=== PATIENT | male | born 1975 | race Caucasian/White ===

== ENCOUNTER 2021-10-04 13:31 | Outpatient (RCR) | payer OTHER, SELFPAY ==
[2021-10-04 14:41] VITALS: BP 127/85; PULSE 84; RESP 20; TEMP 36.6; O2SAT 97
[2021-10-04] MEDS: ACETAMINOPHEN 325 MG TABLET 650 MG PO (14:43)
[2021-10-04] MEDS: FAMOTIDINE 20 MG TABLET PO (14:43)
[2021-10-04] MEDS: diphenhydrAMINE HCl CAP 25 MG CAPSULE PO (14:43)
--- NOTE | 2021-10-04 15:22 | PC.NURSE ---
Patient not vaccinated for COVID at this time.
[2021-10-04 16:22] VITALS: BP 115/73; PULSE 59; RESP 18; TEMP 36.8; O2SAT 95
== END 2021-10-05 08:19 ==
LOC: AMCINF 13:31
PROVIDERS: Visit Provider Internal Medicine Hematology & Oncology
DX: Z23 Encounter for immunization (principal); U07.1 COVID-19
CPT/HCPCS: A9270; M0245; Q0245

== ENCOUNTER 2025-05-08 08:35 | Emergency (ER) | payer OTHER, SELFPAY ==
--- NOTE | 2025-05-08 08:36 | ED_ITS ---
HPI - Skin/Abscess/Foreign Bdy General Chief complaint: Skin/Abscess/Foreign Body Stated complaint: tick bites Time Seen by Provider: 05/08/25 09:02 Source: patient, RN notes reviewed and old records reviewed Mode of arrival: ambulatory Limitations: no limitations History of Present Illness HPI narrative: 49-year-old male presents to [facility] with concerns for insect bites. States that he went , them off night. Has the less than 0.5 cm bumps 1 to the left leg in 2 to the right lower leg. Reports them as being very itchy. Pants used topicals antibacterial, hydrocortisone Related Data Home Medications ?Medication ?Instructions ?Recorded ?Confirmed ?Last Taken ?Type No Home Medications 05/08/25 05/08/25 Unknown History Allergies Allergy/AdvReac Type Severity Reaction Status Date / Time No Known Allergies Allergy Verified 05/08/25 08:44 Review of Systems Review of Systems: All systems reviewed & are unremarkable except as noted in HPI and below Constitutional: Constitutional: Reports no additional constitutional complaints ENT: Reports system reviewed and no additional complaints, except as documented Musculoskeletal: Musculoskeletal: Reports no additional musculoskeletal complaints Integumentary/Breasts: Skin/Breast: Reports as per HPI PMFSH Social History Social History Smoking status: Never smoker Alcohol intake: current Spiritual care concerns: No Comments At the time of my signature, I reviewed and agree with the nursing past medical, surgical, social, and family history. There is no relevant family history p ertinent to the patient complaint. Exam Const: General: cooperative, healthy appearing, comfortable, no acute distress, well developed, alert and well nourished Nutritional Appearance: well nourished Orientation/consciousness: patient oriented x3 Limitations: no limitations HENMT: Head: normal to inspection Eyes: General: appearance normal, both eyes and all related structures Alignment and Position: alignment normal Neck: Neck: normal visual inspection, full ROM, no lymphadenopathy and no meningeal signs Chest: Chest palpation & inspection: normal inspection of the chest Resp: Effort & Inspection: normal respiratory effort and able to speak in complete sentences Cardio: Rate: regular rate Skin: General skin exam: normal color and no rashes or lesions noted Other: 3 insect bites less than 0.5 cm 1 to the left lower leg, 2 to the right lower legs. No significant erythema, all 3 are blanchable. No fluctuance Neuro: General: patient oriented x3, gait normal, moves all extremities and no meningeal signs Cognition (Neuro): normal cognition Speech: normal speech Gait exam (Neuro): Normal gait present Extrem: General: normal to inspection, full ROM, capillary refill normal and normal gait Psych: Appearance: grossly normal and well kempt Mental Status: mental status grossly normal Speech and movement: Normal speech and movement present and Clear speech present Affect: normal affect Attitude: cooperative Course Course Level of Care: Express Care Visit Vital Signs Vital signs: Vital Signs Temperature 97.5 F L 05/08/25 08:44 Pulse Rate 65 05/08/25 08:44 Respiratory Rate 16 05/08/25 08:44 Blood Pressure 146/78 H 05/08/25 08:44 Pulse Oximetry 98 05/08/25 08:44 Oxygen Delivery Room Air 05/08/25 08:44 Temperature 97.5 F L 05/08/25 08:44 Pulse Rate 65 05/08/25 08:44 Respiratory Rate 16 05/08/25 08:44 Blood Pressure 146/78 H 05/08/25 08:44 Pulse Oximetry 98 05/08/25 08:44 Oxygen Delivery Room Air 05/08/25 08:44 Reviewed MDM - Skin/Abscess/Foreign Bdy MDM Narrative Medical decision making narrative: Patient sitting in exam. Patient is nontoxic, vitals stable. Patient with 3 day history of insect bite Offered triamcinolone cream, states he did not need a prescription Discussed patient patient pulling tics, discussed prophylactic dose doxycycline which he declined at this time. Patient appropriate for outpatient treatment with close follow up Discharge instructions reviewed with patient, as well as provided in writing per nursing staff. The instructions also include specific and strict return/GO TO THE ER as well as f/u information. All questions have been answered, and the patient deny any further questions wit h discharge and discharge plan. Some parts of this dictation were generated by voice recognition software and may contain typographical and/or grammatical inaccuracies. Differential Diagnosis Differential diagnosis: Likely abscess of skin or subcutaneous tissue, urticaria, cellulitis, eczema, insect bites, impetigo and contact dermatitis Critical Care Time Critical Care Time Critical Care Time: No Discharge Plan Discharge Clinical Impression: Insect bites Patient Disposition: Home Condition: Stable Instructions: Insect Bite or Sting (ED), Tick Bite (ED) Additional Instructions: Wash area with warm soapy water, pat dry. The most important part of your care is follow up with Primary care provider. Take Benadryl 25 mg every 8 hours for itching Take Zyrtec every day Take Pepcid 20mg daily for 7 days Apply hydrocortisone cream Avoid hot showers, Take cool showers. Hot showers will make rashes worse Apply cool compresses every 2-3 hours for 15 minutes Follow-up with primary care provider Go to the ER for new or worsening symptoms such as shortness of breath. Patient Language: Ukrainian Prescriptions: No Action No Home Medications Follow-up/Referrals: UNKNOWN,DOCTOR [Non-Staff] - Time of Disposition: 09:14
[2025-05-08 08:44] VITALS: BP 146/78; PULSE 65; RESP 16; TEMP 36.4; O2SAT 98
== END 2025-05-08 09:18 | disposition home or self-care (01) ==
PROVIDERS: Emergency Provider Nurse Practitioner; PCP Student in an Organized Health Care Education/Training Program
DX: S80.862A Insect bite (nonvenomous), left lower leg, initial encounter (principal); W57.XXXA Bitten or stung by nonvenomous insect and other nonvenomous arthropods, initial encounter
CPT/HCPCS: 99211; G0463

== ENCOUNTER 2025-05-20 15:33 | Emergency (ER) | payer OTHER, SELFPAY ==
[2025-05-20] VITALS (14 sets, daily range): BP systolic 144–187; BP diastolic 89–104; PULSE 54–76; RESP 11–21; TEMP 36.7; O2SAT 97–100
--- NOTE | ~2025-05-20 | XR_ITS ---
XR chest 1V portable Ordering provider: Barry Gutierrez MD History: 49 years Male with . cp . Comparison: None. FINDINGS: MEDIASTINUM: The cardiac silhouette is not enlarged. LUNGS: No infiltrates, effusions or pneumothorax. OTHER: No free air under the diaphragm. Possible sliding hiatus hernia. IMPRESSION: No acute cardiopulmonary pathology. Reviewed, dictated and finalized at location A.
--- OUTSIDE RECORDS SUMMARY | 2025-05-20 15:34 | XMS_ITS | Encounter Summary ---
Author Organization [facility] Address [address] [place] [address] Care Team Providers Care Weed Thinner Name Role Phone Rufino Vela MD Primary Care Provider Unav ailable Lashell Reyes MD Primary Care Provider [phone] Rufino Vela MD Primary Care Provider Unav ailable Lashell Reyes MD Unavailable [phone] Lashell Reyes MD Primary Care Provider [phone] Rufino Vela MD Primary Care Provider Unav ailable Encounter Details Date Type Department Care Team (Late st Contact Info) Description 04/01/2019 Lab Requisition [facility] Care DermPath Lab [address] [place] [address] Michael Montiel MD [address] [place] [id number] Social History Tobacco Use Types Packs/Day Years Used Date Smoking Tobacco: Never Smokeless Tobacco: Never Comments:BARS Alcohol Use Standard Drinks/Week Comments Yes 0 (1 standard drink = 0.6 oz pur e alcohol) 6-8 A WEEK Sex and Gender Information Value Date Recorded Sex Assigned at Not on file 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 Author Exercise 5X per week (30 min per time) Exercise No Lashell Reyes MD Note: The [employer] recommends all adults get a minimum of 150 minutes of moderate physical activity a week. This can be completed as 30 minutes of brisk walking on most days of the week. Even 10 minutes of exercise a day can provide benefit and will add up over the week. If able, try to take the stairs instead of the elevator or park farther away in the parking lot. Start slow and try to increase your amount of activity over several weeks. Exercise will help to improve your cholesterol readings and blood pressure and to be overall healthier. documented as of this encounter Procedures Procedure Name Priority Date/Time Associated Diagnosis Comments DERMATOPATH TECHNICAL REPORT Routine 03/31/2019 12:00 AM CDT documented in this encounter Results * DERMATOPATH TECHNICAL REPORT (03/31/2019 12:00 AM CDT) Case Report Dermatopathology Report Case: [id number] Authorizing Provider: Michael Montiel MD Collected: 03/31/2019 12:00 AM Pathologist: Louisa Coto MD Received: 04/01/2019 01:30 PM Specimen: Skin, right anglican 4:07 PM CDT DERMATOPATHOLOGY LABORATORY Clinical History Hemangioma. R/O other 9 4:07 PM CDT DERMATOPATHOLOGY LABORATORY Gross Description Specimen A: Received is one formalin filled container labeled with the patient's name and designated right anglican. The specimen consists of a shave biopsy measuring 5x4x1 mm. Jar 0. [facility] Dermatopathology Laboratory performed the technical component only. 9 4:07 PM CDT DERMATOPATHOLOGY LABORATORY Embedded Images 4:07 PM CDT DERMATOPATHOLOGY LABORATORY DISCLAIMER An external and internal positive and negative controls are appropriate for the histochemical, immunohistochemical and immunofluorescence stain(s) in this case (if any), except where stated explicitly. The performance characteristics of the stain(s) cited in this report were developed and its performance characteristic determined by the Dermatopathology Laboratory at [facility], directed by Dr. Jaxon Coto. These tests need not be, and therefore are not, approved by the [place] Food and Drug Administration. The tests are used for clinical purposes. 9 4:07 PM CDT DERMATOPATHOLOGY LABORATORY at 1607 CDT Pathology/Cytolog y TISSUE SPECIMEN FROM SKIN / Unknown 03/31/2019 04/01/2019 1:30 PM CDT Michael Montiel MD LAB - PATHOLOGY/CYTOLOGY ORDERA BLES Final Result DERMATOPATHOLOGY LABORATORY [facility] - Department of Dermatology [address] [place] [address], [address] [place] [address], [facility] [phone] documented in this encounter Visit Diagnoses Not on filedocumented in this encounter Care Teams Weed Thinner Relationship Specialty Start Date End Date Rufino Vela MD PCP - General 04/01/19 04/28/19 Lashell Reyes MD PCP - General Family Medicine 04/29/19 01/24/21 Rufino Vela MD NEED INFORMATION UPDATED PCP - General 01/25/21 1 Lashell Reyes MD [address] [place] [phone] PCP - Attributed-[employer] 02/15/21 3 Lashell Reyes MD PCP - General Family Medicine 10/04/21 02/26/22 Rufino Vela MD NEED INFORMATION UPDATED PCP - General 02/27/22 documented as of this encounter
--- OUTSIDE RECORDS SUMMARY | 2025-05-20 15:34 | XMS_ITS | Encounter Summary ---
Author Organization [facility] Address [address] [place] [address] Care Team Providers Care Stone And Plate Preparer Apprentice Name Role Phone Rufino Vela MD Primary Care Provider Unav ailable Lashell Reyes MD Primary Care Provider [phone] Rufino Vela MD Primary Care Provider Unav ailable Lashell Reyes MD Primary Care Provider [phone] Rufino Vela MD Primary Care Provider Unav ailable Lashell Reyes MD Unavailable [phone] Lashell Reyes MD Primary Care Provider [phone] Rufino Vela MD Primary Care Provider Unav ailable Encounter Details Date Type Department Care Team (Late st Contact Info) Description 03/17/2015 Therapy Visit [facility] Rufino Vela MD NEED INFORMATION UPDATED Social History Tobacco Use Types Packs/Day Years Used Date Smoking Tobacco: Never Smokeless Tobacco: Never Comments:BARS Alcohol Use Standard Drinks/Week Comments Yes 0 (1 standard drink = 0.6 oz pur e alcohol) 6-8 A WEEK Sex and Gender Information Value Date Recorded Sex Assigned at Not on file 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 Gender Identity Not on file Sexual Orientation Not on file 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 on file Not on file documented as of this encounter Plan of Treatment Not on file documented as of this encounter Visit Diagnoses Not on filedocumented in this encounter Care Teams Stone And Plate Preparer Apprentice Relationship Specialty Start Date End Date Rufino Vela MD PCP - General 01/02/09 02/15/19 Lashell Reyes MD PCP - General Family Medicine 02/16/19 03/31/19 Rufino Vela MD PCP - General 04/01/19 04/28/19 Lashell Reyes MD PCP - General Family Medicine 04/29/19 01/24/21 Rufino Vela MD NEED INFORMATION UPDATED PCP - General 01/25/21 1 Lashell Reyes MD [address] [place] [phone] PCP - Attributed-[employer] 02/15/21 3 Lashell Reyes MD PCP - General Family Medicine 10/04/21 02/26/22 Rufino Vela MD NEED INFORMATION UPDATED PCP - General 02/27/22 documented as of this encounter
--- NOTE | 2025-05-20 15:35 | ECG_ITS ---
Test Date: 2025-05-20 15:38:48 Measurements Intervals [place] Rate: 68 P: 53 IN: 175 QRS: 7 QRSD: 111 T: 37 QT: 420 QTc: 449 Interpretive Statements SINUS RHYTHM WITH OCCASIONAL VENTRICULAR PREMATURE COMPLEXES INCOMPLETE RIGHT BUNDLE BRANCH BLOCK [90+ ms QRS DURATION, TERMINAL R IN V1/V2, 40+ ms S IN I/aVL/V4/V5/V6] MODERATE ST DEPRESSION [0.05+ mV ST DEPRESSION] No previous ECG available for comparison Electronically Signed On 05-21-2025 13:55:06 CDT by Azael Acosta M.D.
--- OUTSIDE RECORDS SUMMARY | 2025-05-20 15:35 | XMS_ITS | Clinical Summary ---
Author Organization [facility] [employer] Address [address] [facility] [place] [address] Care Team Providers Care Nursing Education Specialist Name Role Phone Rufino Vela MD Primary Care Provider Unav ailable Source Comments [facility],non-owned Affiliates and Associated Physician Practices is amultiple site organization consisting of ambulatory clinics and hospital sitesin [place], [place], [place] and [place]. This disclosure is being madepursuant to the Care Everywhere program and may not contain all information available regarding this patient. Last updated 18.[facility] [employer] Allergies Active Allergy Reactions Criticality Noted Date Comments Clarithromycin Diarrhea,Nausea 01/02/2009 Medications * Be aware that medications may not be up to date on this document. Alwaysverify current medications with the patient. Fexofenadine HCl (ASHLI ALLERGY PO) Take 1 tablet by mouth once daily Active clonazePAM (KLONOPIN) 1 MG tablet Take 1 (one) tablet by mouth nightly as needed FOR ANXIETY. Please use sparingly 30 tablet Active Active Problems Problem Noted Date Diagnosed Date BMI 29.0-29.9,adult 10/04/2021 Anxiety 01/12/2014 Cervical radiculopathy 07/15/2011 Neck pain 07/15/2011 Overview (07/15/2011): Cervical spine xray: negative. Left shoulder pain 07/15/2011 Overview (07/15/2011): Left shoulder xray: negative. Back pain 02/04/2011 Overview (04/10/2015): MRI lumbar spine. Negative. Needs followup in 1 -2 weeks as this is Workman's Compensation injury. Allergic rhinitis 01/02/2009 Overview (08/17/2015): Resolved Problems Problem Noted Date Diagnosed Date Resolved Date Left lumbar radiculopathy 02/04/2011 Screening for condition 01/02/200912/2018 Overview (08/17/2015): Adult Abstraction Problem List Screening NONE Immunizations Immunization Administration Dates Next Due TDAP (7yrs+) 03/10/2018,03/15/2008 Family History Medical History Relation Name Comments Cancer - Skin, Melanoma Father Colon polyps Father Diabetes - Type 2 Father as side-ef fect of chemo Other - Cardiac Father hole in hear t Cancer - Ovarian Maternal Aunt 1 Leukemia Maternal Aunt 2 Cancer - Prostate Maternal Grandfather Cancer - Breast Maternal Grandmother Cancer - Skin, Melanoma Mother Cancer - Prostate Paternal Grandfather Other Paternal Grandfather PPM Cancer - Skin, Melanoma Paternal Grandmother Cancer Sister Thyroid Cancer - Breast Sister Relation Name Status Comments Father Maternal Aunt 1 Maternal Aunt 2 Maternal Grandfather Maternal Grandmother Mother Paternal Grandfather Paternal Grandmother Sister Social History Tobacco Use Types Packs/Day Years Used Date Smoking Tobacco: Never Smokeless Tobacco: Never Tobacco Cessation:Counseling Given: Yes Comments:BARS Alcohol Use Standard Drinks/Week Comments Yes 0 (1 standard drink = 0.6 oz pur e alcohol) 6-8 A WEEK Sex and Gender Information Value Date Recorded Sex Assigned at Not on file 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 Gender Identity Not on file Sexual Orientation Not on file 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 on file Not on file Last Filed Vital Signs Vital Sign Reading Time Taken Comments Blood Pressure 136/86 12/28/2020 10:50 AM CLINICAL RESEARCH TECHNICIAN Pulse 82 12/28/2020 10:50 AM CLINICAL RESEARCH TECHNICIAN Temperature 36 C (96.8 F) 12/28/2020 10:50 AM CLINICAL RESEARCH TECHNICIAN Respiratory Rate 20 02/16/2019 8:56 AM CDT Oxygen Saturation 98% 12/28/2020 10:50 AM CLINICAL RESEARCH TECHNICIAN Inhaled Oxygen Concentration - - Weight 102.1 kg (225 lb) 12/28/2020 10:50 AM CLINICAL RESEARCH TECHNICIAN Height 185.4 cm (6' 1) 12/28/2020 10:50 AM CLINICAL RESEARCH TECHNICIAN Body Mass Index 29.69 12/28/2020 10:50 AM CLINICAL RESEARCH TECHNICIAN Plan of Treatment Health Maintenance Due Date Last Done Comments COLOGUARD (AGES 45-75) - COL ON CA SCREENING 1977 COLON MONITORING 1977 COLONOSCOPY - COLON CA SCREENING 1977 CT COLONOGRAPHY - COLON CA SCREENING 1977 Colorectal Cancer Screening 1977 FIT - COLON CA SCREENING 1977 FLEX SIG - COLON CA SCREENING 1977 HIV SCREENING 1992 HEPATITIS B VACCINE (1 of 3 - 19+ 3-dose series) 1996 SCREENING FOR DIABETES 12/28/2023 , 02/26/2017 COVID-19 VACCINE (1 - 2023-2 5 season) 2024 DEPRESSION SCREENING 11/17/2024 INFLUENZA VACCINE (Season Ended) 2025 LIPID TESTING 12/28/2025 12/28/2020, 02/26/2017 ZOSTER VACCINE (1 of 2) 2027 DTAP/TDAP/TD VACCINES (3 - T d or Tdap) 03/10/2028 03/10/2018, 03/15/2008 HEPATITIS C SCREENING Completed 12/28/2020 HIB VACCINE Aged Out No longer eligi ble based on patient's age to complete this topic HPV VACCINE Aged Out No longer eligi ble based on patient's age to complete this topic MENINGOCOCCAL (Group B) VACCINE SHARED DECISION-MAKING Aged Out No longer eligible based on patient's age to complete this topic MENINGOCOCCAL GROUPS A/C/Y/W VACCINE Aged Out No longer eligible b ased on patient's age to complete this topic PNEUMOCOCCAL VACCINE Aged Out No long er eligible based on patient's age to complete this topic Goals Goal Patient Goal Type Associated Problems Recent Progress Patient-Stated? Author Exercise 5X per week (30 min per time) Exercise No Lashell Reyes MD Note: The [employer] recommends all adults [...] blood pressure and to be overall healthier. Procedures Procedure Name Priority Date/Time Associated Diagnosis Comments COMPREHENSIVE METABOLIC PANEL Routine 12/28/2020 12:03 PM CLINICAL RESEARCH TECHNICIAN Annual physical exam Screening for diabetes mellitus LIPID PROFILE REFLEX LDL DIRECT Routine 12/28/2020 12:03 PM CLINICAL RESEARCH TECHNICIAN Annual physical exam Screening, lipid HEPATITIS C AB W RFLX VERIFICATION Routine 12/28/2020 12:03 PM CLINICAL RESEARCH TECHNICIAN Annual physical exam Encounter for hepatitis C screening test for low risk patient from Last 3 Months or Most Recently Relevant to Health Maintenance Results * (ABNORMAL) LIPID PROFILE REFLEX LDL DIRECT (12/28/2020 12:03 PM CLINICAL RESEARCH TECHNICIAN) Cholesterol 242(H) <200 mg/dL [facility] INSURANCE BILL Triglycerides 152(H) <150 mg/dL [facility] INSURANCE BILL HDL Cholesterol 61 >40 mg/dL [facility] INSURANCE BILL VLDL Calculated 30 <=30 mg/dL [facility] INSURANCE BILL LDL Calculated 151(H) <130 mg/dL [facility] INSURANCE BILL Cholesterol/HDL Ratio 4.0 <4.5 [facility] INSURANCE BILL LDL/HDL Ratio 2.5 <5.0 [facility] INSURANCE BILL Comment:FASTING Blood BLOOD SPECIMEN / Unknown 12/28/2020 12:03 PM CLINICAL RESEARCH TECHNICIAN 12/28/2020 Narrative Resulting Agency Comment Lab Testing performed at: [facility] [address] [place] [phone] [place] Lashell Reyes MD LAB - CHEMISTRY ORDERABLES Fin al Result [facility] INSURANCE BILL [address] [place] [address] * HEPATITIS C AB W RFLX VERIFICATION (12/28/2020 12:03 PM CLINICAL RESEARCH TECHNICIAN) [facility] Hepatitis C Antibody <0.1 0.0 - 0.9 s/co ratio [facility] INSURANCE BILL Comment:FASTING Blood BLOOD SPECIMEN / Unknown 12/28/2020 12:03 PM CLINICAL RESEARCH TECHNICIAN 12/28/2020 Narrative Resulting Agency Comment [facility] [address] [facility] [phone] Lashell Reyes MD LAB - CHEMISTRY ORDERABLES Fin al Result [facility] INSURANCE BILL [address] [place] [address] * COMPREHENSIVE METABOLIC PANEL (12/28/2020 12:03 PM CLINICAL RESEARCH TECHNICIAN) [facility] Glucose 88 70 - 105 mg/dL [facility] INSURANCE BILL BUN 11 8.9 - 20.6 mg/dL [facility] INSURANCE BILL Creatinine 0.95 0.72 - 1.25 mg/dL [facility] INSURANCE BILL eGFR by MDRD >60 >60 mL/min/1.7 3m2 [facility] INSURANCE BILL eGFR by MDRD >60 >60 mL/min/1.7 3m2 [facility] INSURANCE BILL Sodium 142 136 - 145 mmol/L [facility] INSURANCE BILL Potassium 4.4 3.5 - 5.1 mmol/L [facility] INSURANCE BILL Chloride 106 98 - 107 mmol/L [facility] INSURANCE BILL CO2 25 23 - 31 mmol/L [facility] INSURANCE BILL Calcium 9.4 8.4 - 10.4 mg/dL [facility] INSURANCE BILL Protein Total 7.6 6.4 - 8.3 gm/dL [facility] INSURANCE BILL Albumin 4.8 3.5 - 5.2 gm/dL [facility] INSURANCE BILL Bilirubin Total 0.6 0.2 - 1.2 mg/dL [facility] INSURANCE BILL Comment:Attention clinician: Reference Range change. Alkaline Phosphatase 53 40 - 150 U/L [facility] INSURANCE BILL Comment:Attention clinician: Reference Range change. AST 20 5 - 34 U/L [facility] INSURANCE BILL ALT 32 0 - 61 U/L [facility] INSURANCE BILL Comment:FASTING Blood BLOOD SPECIMEN / Unknown 12/28/2020 12:03 PM CLINICAL RESEARCH TECHNICIAN 12/28/2020 Narrative Resulting Agency Comment Lab Testing performed at: [facility] [address] [place] [id number] Lashell Reyes MD LAB - CHEMISTRY ORDERABLES Fin al Result [facility] INSURANCE BILL [address] [place] [address] from Last 3 Months or Most Recently Relevant to Health Maintenance Insurance [employer] Care Teams Nursing Education Specialist Relationship Specialty Start Date End Date Rufino Vela MD NEED INFORMATION UPDATED PCP - General 02/27/22
--- OUTSIDE RECORDS SUMMARY | 2025-05-20 15:35 | XMS_ITS | Encounter Summary ---
Author Organization [facility] Address 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 Gender Identity Not on file Sexual Orientation Not on file documented as of this encounter Plan of Treatment Not on file documented as of this encounter Procedures Procedure Name Priority Date/Time Associated Diagnosis Comments PATHOLOGY Routine 03/18/2008 5:00 PM CDT documented in this encounter Results * PATHOLOGY (03/18/2008 5:00 PM CDT) FINAL REPORT [facility] [address], [place] [address] Patient: MARCELINA YANCEY : 1975 Procedure Date: 03/18/2008 Accession Date: 03/19/2008 Case No: [id number] Ordering Dr: KUSUM MONTEMAYOR Case types AW, BW, FW, NW and SH are performed by [facility], [place], [place] SURGICAL PATHOLOGY & NON-GYNECOLOGIC CYTOPATHOLOGY REPORT DIAGNOSIS SKIN, SCROTUM, EXCISION: - MELANOCYTIC NEVUS, COMPOUND TYPE. - REACTIVE AND REPARATIVE CHANGES (SEE DESCRIPTION). Specimen Description: Lesion scrotum. Operative Procedure: Not stated. Patient Information/History/Di agnosis: Has had for 1.5 years. Gross: Received in a container labeled Marcelina Yancey, lesion scrotum is an unoriented ellipse of hair-bearing skin measuring 1.7 x 1.1 x 0.3 cm. Present on the skin surface is a circumscribed flat lobato lesion measuring 1.2 x 1.2 cm, which abuts the margin. The margin is marked with ink. The specimen is serially sectioned and submitted entirely in A1. GL/TMZ 03.19.2008 09:41 am Microscopic: Received are slides labeled [id number], Marcelina Yancey. Sections of scrotum identify nests of nevus cells distributed along the dermal/epidermal junction. Substantial upward migration is not identified. A dermal component present and there is vertical maturation. In one of the sections, there is superficial dermal fibrosis consistent with a scar, and raising the consideration of prior biopsy or trauma. In this area, nevus cells assume a more lentiginous distribution. This finding may relate to prior biopsy or to previous trauma. The process is basically symmetric, with only slight lateral extension of the junctional component. The junctional component very focally extends to the inked, peripheral margin. An immunohistochemical stain for HMB45 demonstrates reactivity with the junctional component; activity is markedly diminished in the dermal component. This is compound melanocytic nevus with very mild architectural disorder and very mild cytologic atypia. Note on use of immunocytochemistry reagents: This test was developed and its performance characteristic determined by [facility], Department of Laboratory Medicine. It has not been cleared or approved by the U.S. Food and Drug Administration. The FDA has determined that such clearance or approval is not necessary. The test is used for clinical purpose. It should not be regarded as investigational or for research. This laboratory is certified to perform high complexity clinical testing. PJC/TMZ 03.21.2008 01:01 pm Staging Form: No. ELECTRONIC SIGNATURE FOR ANNY AGUILAR M.D.- 03/23/08 02:04 pm INTERFACE SYSTEM 03/18/2008 5:00 PM CDT us Kusum Montemayor MD PATHOLOGY/CYTOLOGY ORDERABLE S Final Result INTERFACE SYSTEM Refer to clinic/hospital department documented in this encounter Visit Diagnoses Not on filedocumented in this encounter Care Teams Paint Stockman Relationship Specialty Start Date End Date Rufino Vela MD PCP - General 11/02/03 documented as of this encounter
--- OUTSIDE RECORDS SUMMARY | 2025-05-20 15:35 | XMS_ITS | Encounter Summary ---
Author Organization [facility] Address [address] [place] [address] Care Team Providers Care Pattern Room Attendant Name Role Phone Rufino Vela MD Primary Care Provider [phone] Encounter Details Date Type Department Care Team (Late st Contact Info) Description 08/21/2001 Outpatient Historical [facility] Internal Medicine Medical [place] A [address] [facility] [address] [address] Darren Gee MD [address] [place] [address] Social History Tobacco Use Types Packs/Day Years Used Date Smoking Tobacco: Never Assessed Sex and Gender Information Value Date Recorded Sex Assigned at Not on file 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
--- OUTSIDE RECORDS SUMMARY | 2025-05-20 15:35 | XMS_ITS | Encounter Summary ---
Author Organization [employer] Address 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
--- OUTSIDE RECORDS SUMMARY | 2025-05-20 15:35 | XMS_ITS | Encounter Summary ---
Author Organization [facility] Address [address] [place] [address] Care Team Providers Care Addiction Treatment Counselor Name Role Phone Lashell Reyes MD Unavailable [phone] Rufino Vela MD Primary Care Provider Unav ailable Encounter Details Date Type Department Care Team (Late st Contact Info) Description 03/18/2022 Lab Requisition [facility] [address] [facility], [place] [id number] Michael Montiel MD [address] [place] [address] Social History Tobacco Use Types Packs/Day Years Used Date Smoking Tobacco: Never Smokeless Tobacco: Never Comments:BARS Alcohol Use Standard Drinks/Week Comments Yes 0 (1 standard drink = 0.6 oz pur e alcohol) 6-8 A WEEK Sex and Gender Information Value Date Recorded Sex Assigned at Not on file 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 Male 4:27 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 Gender Identity Not on file Sexual Orientation [...] Exercise No Lashell Reyes MD Note: The [employer] recommends all adults [...] Procedure Name Priority Date/Time Associated Diagnosis Comments DERMATOPATHOLOGY Routine 03/15/2022 12:0 0 AM CDT documented in this encounter Results * DERMATOPATHOLOGY (03/15/2022 12:00 AM CDT) Case Report Dermatopathology Report Case: [id number] Authorizing Provider: Michael Montiel MD Collected: 03/15/2022 12:00 AM Ordering Location: [facility] Lab Received: 03/18/2022 11:34 AM Pathologist: Louisa Coto MD Specimen: Skin, mid back 2 12:20 PM CDT DERMATOPATHOLOGY LABORATORY Final Diagnosis Specimen A. SKIN, mid back: DERMAL SCAR RESIDUAL MELANOCYTIC PROLIFERATION NOT IDENTIFIED (L90.5) 2 12:20 PM CDT DERMATOPATHOLOGY LABORATORY at 1220 CDT Clinical History Junctional Melanocytic Proliferation. Please Check Margins. 12:20 PM CDT DERMATOPATHOLOGY LABORATORY Gross Description Specimen A: Received is one formalin filled container labeled with the patient's name and designated mid back.The specimen consists of an ellipse measuring [id number] and is oriented with the suture/notch at the 12 o'clock position labeled on the requisition as (notch at 12 o'clock). The 12 to 6 o'clock margin is inked green. The 6 o'clock to 12 o'clock margin is inked black. The 12 o'clock tip is submitted in cassette 1. The 6 o'clock tip is submitted in cassette 2. The remainder of the ellipse is serially sectioned and submitted in cassettes 3 -4. Jar 0. 2 12:20 PM CDT DERMATOPATHOLOGY LABORATORY Microscopic Description Specimen A. SKIN, mid back: There are fibroblasts and collagen bundles oriented parallel to the skin surface. There are elongated blood vessels, some of which are oriented perpendicular to the skin surface. No residual melanocytic proliferation is identified. 2 12:20 PM CDT DERMATOPATHOLOGY LABORATORY Disclaimer An external and internal positive and negative controls are appropriate for the histochemical, immunohistochemical and immunofluorescence stain(s) in this case (if any), except where stated explicitly. The performance characteristics of the stain(s) cited in this report were developed and its performance characteristic determined by the Dermatopathology Laboratory at [facility], directed by Dr. Jaxon Coto. These tests need not be, and therefore are not, approved by the [place] Food and Drug Administration. The tests are used for clinical purposes. Billing Codes Specimen Charges Stain Charges 10043 1 2 12:20 PM CDT DERMATOPATHOLOGY LABORATORY Embedded Images 2 12:20 PM CDT DERMATOPATHOLOGY LABORATORY Pathology/Cytolog y TISSUE SPECIMEN FROM SKIN / Unknown 03/15/2022 03/18/2022 11:34 AM CDT Michael Montiel MD LAB - PATHOLOGY/CYTOLOGY ORDERA BLES Final Result DERMATOPATHOLOGY LABORATORY [facility] Department of Dermatology [facility] Medicine [address] [place] [address], [address] [phone] documented in this encounter Visit Diagnoses Not on filedocumented in this encounter Care Teams Addiction Treatment Counselor Relationship Specialty Start Date End Date Lashell Reyes MD [address] [address] PCP - Attributed-[employer] 02/15/21 3 Rufino Vela MD NEED INFORMATION UPDATED PCP - General 02/27/22 documented as of this encounter
--- OUTSIDE RECORDS SUMMARY | 2025-05-20 15:35 | XMS_ITS | Clinical Summary ---
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
--- OUTSIDE RECORDS SUMMARY | 2025-05-20 15:35 | XMS_ITS | Referral Summary ---
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 Gender Identity Not on file Sexual Orientation Not on file Last Filed Vital Signs Vital Sign Reading Time Taken Comments Blood Pressure 150/88 09/08/2022 9:47 PM CDT Pulse 88 09/08/2022 9:47 PM CDT Temperature 36.5 C (97.7 F) 09/08/2022 9:47 PM CDT Respiratory Rate 16 09/08/2022 9:47 PM CDT Oxygen Saturation 100% 09/08/2022 9:47 PM CDT Inhaled Oxygen Concentration - - Weight 95.3 kg (210 lb) 09/08/2022 7:40 PM CDT Height 185.4 cm (6' 1) 07/13/2014 2:18 PM CDT Body Mass Index 27.71 07/13/2014 2:18 PM CDT Plan of Treatment Not on file Insurance [facility] Care Teams Nonprofit Manager Relationship Specialty [place] [address] [place] [address] PCP - General 07/13/14
--- OUTSIDE RECORDS SUMMARY | 2025-05-20 15:35 | XMS_ITS | Encounter Summary ---
Author Organization [facility] Address [address] [facility] [place] [address] Care Team Providers Care Cyber Forensics Analyst Name Role Phone Lashell Reyes MD Unavailable [phone] Rufino Vela MD Primary Care Provider Unav ailable Encounter Details Date Type Department Care Team (Late st Contact Info) Description 02/27/2022 Lab Requisition [facility] [address] [facility], [place] [address] Michael Montiel MD [address] [place] [address] Social History Tobacco Use Types Packs/Day Years Used Date Smoking Tobacco: Never Smokeless Tobacco: Never Comments:BARS Alcohol Use Standard Drinks/Week Comments Yes 0 (1 standard drink = 0.6 oz pur e alcohol) 6-8 A WEEK Sex and Gender Information Value Date Recorded Sex Assigned at Not on file Legal 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 Gender Identity Not on file Sexual Orientation [...] Exercise No Lashell Reyes MD Note: The [employer] recommends all adults [...] Priority Date/Time Associated Diagnosis Comments DERMATOPATHOLOGY Routine 02/27/2022 12:0 0 AM CDT documented in this encounter Results * DERMATOPATHOLOGY (02/27/2022 12:00 AM CDT) Case Report Dermatopathology Report Case: [id number] Authorizing Provider: Michael Montiel MD Collected: 02/27/2022 12:00 AM Ordering Location: [facility] Derm[facility] Lab Received: 02/27/2022 02:18 PM Pathologist: Louisa Coto MD Specimen: Skin, mid back 2 5:25 PM CDT DERMATOPATHOLOGY LABORATORY Final Diagnosis Specimen A. SKIN, mid back: JUNCTIONAL MELANOCYTIC PROLIFERATION, INFLAMED; PRESENT AT MARGIN (D48.5) (see microscopic description and comment) 2 5:25 PM CDT DERMATOPATHOLOGY LABORATORY at 1725 CDT Clinical History Nevus R/O atypia. 2 5:25 PM CDT DERMATOPATHOLOGY LABORATORY Gross Description Specimen A: Received is one formalin filled container labeled with the patient's name and designated mid back. The specimen consists of a shave biopsy measuring [id number]. Jar 0. 2 5:25 PM CDT DERMATOPATHOLOGY LABORATORY Microscopic Description Specimen A. SKIN, mid back: Sections show a junctional melanocytic proliferation. There is a lentiginous proliferation of melanocytes between irregular nests. Scattered melanocytes show evidence of upward migration within the epidermis. The melanocytes are highlighted by MART-1/Melan-A. There is a lymphohistiocytic infiltrate within the dermis. This lesion is present at the margin of the specimen. COMMENT: Because this lesion is present at the margin of the specimen, symmetry and circumscription can not be evaluated. Therefore, a complete but conservative re-excision is recommended to evaluate this lesion in its entirety. 2 5:25 PM CDT DERMATOPATHOLOGY LABORATORY Disclaimer An external and internal positive and negative controls are appropriate for the histochemical, immunohistochemical and immunofluorescence stain(s) in this case (if any), except where stated explicitly. The performance characteristics of the stain(s) cited in this report were developed and its performance characteristic determined by the Dermatopathology Laboratory at [facility], directed by Dr. Jaxon Coto. These tests need not be, and therefore are not, approved by the [place] Food and Drug Administration. The tests are used for clinical purposes. Billing Codes Specimen Charges Stain Charges 58924 1 08620 1 2 5:25 PM CDT DERMATOPATHOLOGY LABORATORY Embedded Images 2 5:25 PM CDT DERMATOPATHOLOGY LABORATORY Pathology/Cytolog y TISSUE SPECIMEN FROM SKIN / Unknown 02/27/2022 02/27/2022 2:18 PM CDT Michael Montiel MD LAB - PATHOLOGY/CYTOLOGY ORDERA BLES Final Result DERMATOPATHOLOGY LABORATORY [facility] Department of Dermatology [facility] Medicine [address] [place] [address], [address] [phone] documented in this encounter Visit Diagnoses Not on filedocumented in this encounter Care Teams Cyber Forensics Analyst Relationship Specialty Start Date End Date Lashell Reyes MD [facility] [facility] [address] [place] [address] PCP - Attributed-[employer] 02/15/21 3 Rufino Vela MD NEED INFORMATION UPDATED PCP - General 02/27/22 documented as of this encounter
--- OUTSIDE RECORDS SUMMARY | 2025-05-20 15:35 | XMS_ITS | Encounter Summary ---
Author Organization [facility] Address 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
--- OUTSIDE RECORDS SUMMARY | 2025-05-20 15:35 | XMS_ITS | Encounter Summary ---
Author Organization [facility] Address [address] [place] [address] Care Team Providers Care Assistant Program Manager Name Role Phone Rufino Vela MD Primary Care Provider [phone] Encounter Details Date Type Department Care Team (Late st Contact Info) Description 12/23/2000 Outpatient Historical [facility] Internal Medicine Medical [place] [address] [facility] [address] [address] Darren Gee MD [address] [place] [address] Social History Tobacco Use Types Packs/Day Years Used Date Smoking Tobacco: Never Assessed Sex and Gender Information Value Date Recorded Sex Assigned at Not on file Legal Sex Male 4:[address] DESIGNER Gender Identity Not on file Sexual Orientation Not on file documented as of this encounter Plan of Treatment Not on file documented as of this encounter Visit Diagnoses Not on filedocumented in this encounter Care Teams Assistant Program Manager Relationship Specialty Start Date End Date Rufino Vela MD PCP - General 11/02/03 documented as of this encounter
--- OUTSIDE RECORDS SUMMARY | 2025-05-20 15:35 | XMS_ITS | Encounter Summary ---
Author Organization [facility] Address [address] [facility] [place] [address] Care Team Providers Care Jacquard Fixer Name Role Phone Rufino Vela MD Primary Care Provider Unav ailable Lashell Reyes MD Primary Care Provider [phone] Rufino Vela MD Primary Care Provider Unav ailable Lashell Reyes MD Primary Care Provider [phone] Rufino Vela MD Primary Care Provider Unav ailable Lashell Reyes MD Unavailable [phone] Lashell Reyes MD Primary Care Provider [phone] Rufino Vela MD Primary Care Provider Unav ailable Encounter Details Date Type Department Care Team (Late st Contact Info) Description 12/08/2018 Lab Requisition [facility] Care DermPath Lab [address] [facility] [place] [address] Michael Montiel MD [address] [place] [address] Social History Tobacco Use Types Packs/Day Years Used Date Smoking Tobacco: Never Smokeless Tobacco: Never Comments:BARS Alcohol Use Standard Drinks/Week Comments Yes 0 (1 standard drink = 0.6 oz pur e alcohol) 6-8 A WEEK Sex and Gender Information Value Date Recorded Sex Assigned at Not on file Legal Sex Male 4:27 AM PRESS PULLER Gender Identity Not on file Sexual Orientation Not on file 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 on file Not on file documented as of this encounter Plan of Treatment Not on file documented as of this encounter Procedures Procedure Name Priority Date/Time Associated Diagnosis Comments DERMATOPATHOLOGY Routine 12/07/2018 12:0 0 AM PRESS PULLER documented in this encounter Results * DERMATOPATHOLOGY (12/07/2018 12:00 AM PRESS PULLER) Case Report Dermatopathology Report Case: [id number] Authorizing Provider: Michael Montiel MD Collected: 12/07/2018 12:00 AM Pathologist: Tory Quintana MD Received: 12/08/2018 12:58 PM Specimen: Skin, left buttocks 11:43 AM [facility] DERMATOPATHOLOGY LABORATORY Final Diagnosis Specimen A. SKIN, left buttocks: COMPOUND MELANOCYTIC NEVUS (D22.5) 11:43 AM [facility] DERMATOPATHOLOGY LABORATORY at [address] PR[address] PULLER Clinical History Nevus R/O atypia. 11:43 AM [facility] DERMATOPATHOLOGY LABORATORY Gross Description Specimen A: Received is one formalin filled container labeled with the patient's name and designated left buttocks. The specimen consists of a shave biopsy measuring [id number]. Jar 0. 11:43 AM [facility] DERMATOPATHOLOGY LABORATORY Microscopic Description Specimen A. SKIN, left buttocks: There are nests of melanocytes at the dermal-epidermal junction and within the dermis. 11:43 AM [facility] DERMATOPATHOLOGY LABORATORY Disclaimer An external and internal positive and negative controls are appropriate for the histochemical, immunohistochemical and immunofluorescence stain(s) in this case (if any), except where stated explicitly. The performance characteristics of the stain(s) cited in this report were developed and its performance characteristic determined by the Dermatopathology Laboratory at [facility], directed by Dr. Jaxon Coto. These tests need not be, and therefore are not, approved by the [place] Food and Drug Administration. The tests are used for clinical purposes. Billing Codes Specimen Charges Stain Charges 43841 1 01/23/201 9 11:43 AM PRESS PULLER DERMATOPATHOLOGY LABORATORY Embedded Images 9 11:43 AM PRESS PULLER DERMATOPATHOLOGY LABORATORY Pathology/Cytolog y TISSUE SPECIMEN FROM SKIN / Unknown 12/07/2018 12/08/2018 12:58 PM PRESS PULLER Michael Montiel MD LAB - PATHOLOGY/CYTOLOGY ORDERA BLES Final Result DERMATOPATHOLOGY LABORATORY [facility] - Department of Dermatology [address] [place] [address], 5th Floor Lab [address] [phone] documented in this encounter Visit Diagnoses Not on filedocumented in this encounter Care Teams Jacquard Fixer Relationship Specialty Start Date End Date Rufino Vela MD PCP - General 01/02/09 02/15/19 Lashell Reyes MD PCP - General Family Medicine 02/16/19 03/31/19 Rufino Vela MD PCP - General 04/01/19 04/28/19 Lashell Reyes MD PCP - General Family Medicine 04/29/19 01/24/21 Rufino Vela MD NEED INFORMATION UPDATED PCP - General 01/25/21 1 Lashell Reyes MD [address] [address] PCP - Attributed-[employer] 02/15/21 3 Lashell Reyes MD PCP - General Family Medicine 10/04/21 02/26/22 Rufino Vela MD NEED INFORMATION UPDATED PCP - General 02/27/22 documented as of this encounter
--- OUTSIDE RECORDS SUMMARY | 2025-05-20 15:35 | XMS_ITS | Clinical Summary ---
Author Organization 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 Gender Identity Not on file Sexual Orientation Not on file Obstetrics History Last Filed Vital Signs Vital Sign Reading [...] 07/13/2014 2:18 PM CDT Plan of Treatment Health Maintenance Due Date Last Done Comments Colon Cancer Screening-Colonoscopy 1977 Depression Screening 1977 Hepatitis C Screening 1977 Hepatitis B Screening 1995 Regular Well Visit/Exam 18-64 1995 Influenza Vaccine (Season Ended) 2025 DTaP/Tdap/Td Vaccine (3 - Td or Tdap) 03/10/2028 03/10/2018, 03/15/2008 Pneumococcal vaccine <65 Aged Out No longer eligible based on patient's age to complete this topic Insurance [facility] Care Teams Coordinator Cardiopulmonary Services Relationship Specialty [place] [address] [place] [address] PCP - General 07/13/14
--- OUTSIDE RECORDS SUMMARY | 2025-05-20 15:35 | XMS_ITS | Clinical Summary ---
Author Organization [facility] Address [facility] [place] [address] Care Team Providers Care Gauge Inspector Name Role Phone Yanira Gill MD Primary Care Provider + Allergies Active Allergy Reactions Criticality Noted Date Comments Clarithromycin Diarrhea,Nausea Only 01/02/2009 Medications No known medications Active Problems Problem Noted Date Diagnosed Date Anxiety 01/12/2014 Overview (10/07/2024): Improved over the years. Mostly occurs at the dentist office. Allergic rhinitis 01/02/2009 Encounters Date Type Department Care Team Description 05/08/2025 Scan Big Frame INFO SRVCS Scanned, [facility] 03/22/2025 9:30 AM CDT Office Visit [facility] Family Medicine - [address] [place] [id number] Yanira Gill MD Testicular Pain (Patient is present today with L testicular pain and blood in semen. Patient stated it happened yesterday, first blood in his semen then pain. Patient states he has had testicular pain intermittently for a few weeks. ) 03/22/2025 - 03/22/2025 11:59 PM CDT Hospital Encounter [facility] [address] [place] [address] Yanira Gill MD Discharge Disposition: Home or Self Care (Routine Discharge) 03/22/2025 Results Follow-Up [facility] [address] [facility] [address] [place], [place] [address] Yanira Gill MD URINALYSIS AUTO DIP 03/22/2025 Travel from Last 3 Months Immunizations Immunization Administration Dates Next Due Tdap (Generic) 03/10/2018,03/15/2008 Family History Medical History Relation Comments No Known Problems Daughter 1 No Known Problems Daughter 2 Cancer Father Melanoma, Bladde r Diabetes Father Hypertension Father Cancer Maternal Aunt 1 Cancer Maternal Aunt 2 Leukemia Retardation/Learning Difficulties Maternal Grand mother Alzheimers No Known Problems Mother Cancer Sister Thyroid, Breast No Known Problems Son 1 No Known Problems Son 2 Relation Status Comments Daughter 1 Alive Daughter 2 Alive Father Alive Maternal Aunt 1 Maternal Aunt 2 Maternal Grandmother Mother Alive Sister Alive Son 1 Alive Son 2 Alive Social History Tobacco Use Types Packs/Day Years Used Date Smoking Tobacco: Never Passive Smoke Exposure: Never Smokeless Tobacco: Never Tobacco Cessation:Counseling Given: No Alcohol Use Standard Drinks/Week Comments Yes 3.3 (1 standard drink = 0.6 oz p ure alcohol) occ PHQ-2 Answer Date Recorded Patient Health Questionnaire-2 Score 0 10/07/2024 Sex and Gender Information Value Date Recorded Sex Assigned at Male 03/22/2025 9:18 AM CDT Legal Sex Male 3:37 PM PSYCH NP Gender Identity Male 03/22/2025 9:18 AM CDT Sexual Orientation Not on file 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 file Not on file Not on file Last Filed Vital Signs Vital Sign Reading Time Taken Comments Blood Pressure 120/86 03/22/2025 9:18 AM CDT Pulse 72 03/22/2025 9:18 AM CDT Temperature 37.6 C (99.7 F) 03/22/2025 9:18 AM CDT Respiratory Rate - - Oxygen Saturation 98% 03/22/2025 9:18 AM CDT Inhaled Oxygen Concentration - - Weight 88.6 kg (195 lb 6.4 oz) 03/22/2025 9:18 A M CDT Height 187.3 cm (6' 1.75) 03/22/2025 9:18 AM CD T Body Mass Index 25.26 03/22/2025 9:18 AM CDT Plan of Treatment Health Maintenance Due Date Last Done Comments Colorectal Cancer Screening Colonoscopy (10 Years) 1977 Hepatitis B Vaccines (1 of - 19+ 3-dose series) 1996 COVID-19 Vaccine (2023-2 5 season) 2024 PHQ-2 (Physician [place]) 11/17/2024 10/07/2024 Annual Physical 10/07/2025 10/07/2024 DTaP, Tdap and Td Vaccines ( 3 - Td or Tdap) 03/10/2028 03/10/2018, 03/15/2008 Hepatitis C Completed 12/28/2020 Meningococcal B Vaccine Aged Out No l onger eligible based on patient's age to complete this topic Meningococcal Vaccine Aged Out No rosemary marissa eligible based on patient's age to complete this topic Pneumococcal Vaccine: Pediatrics (0 to 5 Years) and At-Risk Patients (6 to 49 Years) Aged Out No longer eligible b ased on patient's age to complete this topic RSV Immunizations Under 20 Months Aged Out No longer eligible b ased on patient's age to complete this topic Procedures Procedure Name Priority Date/Time Associated Diagnosis Comments URINE BACTERIA CULTURE Routine 03/22/2025 9:57 AM CDT Urinary symptom or sign URINALYSIS AUTO DIP Routine 03/22/2025 Urinary symptom or sign from Last 3 Months Results * URINE BACTERIA CULTURE (03/22/2025 9:57 AM CDT) SPEC DESCRIPTION URINE, UNSPECIFIED 03/22/2025 1:33 PM CDT [facility] SPECIAL REQUESTS NO SPECIAL REQUEST 03/22/2025 1:33 PM CDT [facility] CULTURE RESULT NO GROWTH (< OR = 1,000 CFU/ML) 03/24/2025 1:05 PM CDT [facility] URINE SPECIMEN / Unknown 03/22/2025 9:57 AM CDT 03/22/2025 5:30 PM CDT us Yanira Gill MD MICROBIOLOGY - GENERAL O RDERABLES Final Result [facility] [address] [place] [address], [id number] * URINALYSIS AUTO DIP (03/22/2025) COLOR (U) YELLOW YELLOW [address], [facility] TRANSPARENCY CLEAR CLEAR [address], [facility] GLUCOSE (U) NEGATIVE NEGATIVE MG/DL [address], [facility] BILIRUBIN (U) NEGATIVE NEGATIVE [address], [facility] KETONES MG/DL (U) NEGATIVE NEGATIVE MG/DL [address], [facility] SPECIFIC GRAVITY (U) 1.025 1.001 - 1.035 [address], [facility] BLOOD (U) NEGATIVE NEGATIVE [address], [facility] U PH 5.5 5.0 - 9.0 [address], [facility] PROTEIN (U) NEGATIVE NEGATIVE mg/dL [address], [facility] UROBILINOGEN 0.2 0.2 - 1.0 EU/dL = mg/dL [address], [facility] NITRITES NEGATIVE NEGATIVE MG/DL [address], [facility] LEUKOCYTES (U) NEGATIVE NEGATIVE [address], [facility] URINE SPECIMEN FROM URETHRA / Unknown 03/22/2025 us Yanira Gill MD URINE ORDERABLES Final R esult [address] [place] [place] [address] [place] [address], [place] [phone] from Last 3 Months Insurance [facility] Care Teams Gauge Inspector Relationship Specialty Start Date End Date Yanira Gill MD [address] [place] [id number] PCP - General FAMILY PRACTICE 09/21/24
--- OUTSIDE RECORDS SUMMARY | 2025-05-20 15:35 | XMS_ITS | Encounter Summary ---
Author Organization [facility] Address [address] [place] [address] Care Team Providers Care Hod Carrier Name Role Phone Rufino Vela MD Primary Care Provider Unav ailable Lashell Reyes MD Primary Care Provider [phone] Rufino Vela MD Primary Care Provider Unav ailable Lashell Reyes MD Primary Care Provider [phone] Rufino Vela MD Primary Care Provider Unav ailable Lashell Reyes MD Unavailable [phone] Lashell Reyes MD Primary Care Provider [phone] Rufino Vela MD Primary Care Provider Unav ailable Encounter Details Date Type Department Care Team (Late st Contact Info) Description 05/30/2009 [facility] DEPT Unknown, Provider Social History Tobacco Use Types Packs/Day Years Used Date Smoking Tobacco: Passive Smo ke Exposure - Never Smoker Comments:BARS Alcohol Use Standard Drinks/Week Comments Yes 0 (1 standard drink = 0.6 oz pur e alcohol) 6-8 A WEEK Sex and Gender Information Value Date Recorded Sex Assigned at Not on file 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 Gender Identity Not on file Sexual Orientation Not on file documented as of this encounter Plan of Treatment Not on file documented as of this encounter Visit Diagnoses Not on filedocumented in this encounter Care Teams Hod Carrier Relationship Specialty Start Date End Date Rufino Vela MD PCP - General 01/02/09 02/15/19 Lashell Reyes MD PCP - General Family Medicine 02/16/19 03/31/19 Rufino Vela MD PCP - General 04/01/19 04/28/19 Lashell Reyes MD PCP - General Family Medicine 04/29/19 01/24/21 Rufino Vela MD NEED INFORMATION UPDATED PCP - General 01/25/21 1 Lashell Reyes MD [address] [address] PCP - Attributed-[employer] 02/15/21 3 Lashell Reyes MD PCP - General Family Medicine 10/04/21 02/26/22 Rufino Vela MD NEED INFORMATION UPDATED PCP - General 02/27/22 documented as of this encounter
--- OUTSIDE RECORDS SUMMARY | 2025-05-20 15:35 | XMS_ITS | Encounter Summary ---
Author Organization [facility] Address [address] [place] [id number] Care Team Providers Care Beverage Distiller Name Role Phone Yanira Gill MD Primary Care Provider + Encounter Details Date Type Department Care Team (Late st Contact Info) Description 03/22/2025 Results Follow-Up [facility] Family Medicine - [place] [address] [facility] [address] [place] [id number] Yanira Gill MD [address] [place] [address] URINALYSIS AUTO DIP Social History Tobacco Use Types Packs/Day Years Used Date Smoking Tobacco: Never Passive Smoke Exposure: Never Smokeless Tobacco: Never Alcohol Use Standard Drinks/Week Comments Yes 3.3 (1 standard drink = 0.6 oz p ure alcohol) occ PHQ-2 Answer Date Recorded Patient Health Questionnaire-2 Score 0 10/07/2024 Sex and Gender Information Value Date Recorded Sex Assigned at Male 03/22/2025 9:18 AM CDT 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 Gender Identity Male 03/22/2025 9:18 AM CDT Sexual Orientation Not on file 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
--- OUTSIDE RECORDS SUMMARY | 2025-05-20 15:35 | XMS_ITS | Encounter Summary ---
Author Organization [facility] Address [address] [place] [address] Care Team Providers Care Trouble Operator Name Role Phone Rufino Vela MD Primary Care Provider [phone] Encounter Details Date Type Department Care Team (Late st Contact Info) Description 03/10/2001 Outpatient Historical [facility] Internal Medicine Medical [place] [address] [address] Darren Gee MD [address] [place] [address] Social History Tobacco Use Types Packs/Day Years Used Date Smoking Tobacco: Never Assessed Sex and Gender Information Value Date Recorded Sex Assigned at Not on file 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
--- OUTSIDE RECORDS SUMMARY | 2025-05-20 15:35 | XMS_ITS | Encounter Summary ---
Author Organization [facility] Address [address] [facility] [place] [address] Care Team Providers Care Multimedia Engineer Name Role Phone Rufino Vela MD Primary Care Provider Unav ailable Lashell Reyes MD Unavailable [phone] Lashell Reyes MD Primary Care Provider [phone] Rufino Vela MD Primary Care Provider Unav ailable Encounter Details Date Type Department Care Team (Late st Contact Info) Description 01/25/2021 Lab Requisition [facility] Care DermPath Lab [address] [place] [id number] Michael Montiel MD [address] [place] [address] Social History Tobacco Use Types Packs/Day Years Used Date Smoking Tobacco: Never Smokeless Tobacco: Never Comments:BARS Alcohol Use Standard Drinks/Week Comments Yes 0 (1 standard drink = 0.6 oz pur e alcohol) 6-8 A WEEK Sex and Gender Information Value Date Recorded Sex Assigned at Not on file 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 Gender Identity Not on file Sexual Orientation [...] Exercise No Lashell Reyes MD Note: The [employer] recommends all adults [...] Priority Date/Time Associated Diagnosis Comments DERMATOPATHOLOGY Routine 01/24/2021 3:33 AM BOILERMAKER WELDER documented in this encounter Results * DERMATOPATHOLOGY (01/24/2021 3:33 AM BOILERMAKER WELDER) Case Report Dermatopathology Report Case: [id number] Authorizing Provider: Michael Montiel MD Collected: 01/24/2021 03:33 AM Ordering Location: [facility] DermPath Lab Received: 01/25/2021 11:46 AM Pathologist: Nidia Harden MD Specimen: Skin, right groin 6:09 PM BOILERMAKER WELDER DERMATOPATHOLOGY LABORATORY Final Diagnosis Specimen A. SKIN, right groin: LENTIGINOUS MELANOCYTIC NEVUS, COMPOUND TYPE, IRRITATED (COMPOUND MELANOCYTIC NEVUS WITH ARCHITECTURAL DISORDER) (D22.71) PRESENT AT MARGIN (see microscopic description) 6:09 PM BOILERMAKER WELDER DERMATOPATHOLOGY LABORATORY at 180 BOILERMAKER WELDER Microscopic Description Specimen A. SKIN, right groin: This is a compound nevus. There is melanin pigment in the stratum corneum. There is architectural disorder characterized by a lentiginous proliferation of melanocytes between irregular nests of cells along the dermal-epidermal junction, highlighted by MART-1/Melan-A immunohistochemical staining. There is underlying fibroplasia of the papillary dermis. The intradermal component is bland appearance and matures with depth. (Compound Grady's Nevus or Compound Dysplastic Nevus) This lesion is present at one lateral margin of the specimen and at the base of the specimen. 1 6:09 PM [facility] DERMATOPATHOLOGY LABORATORY Disclaimer An external and internal positive and negative controls are appropriate for the histochemical, immunohistochemical and immunofluorescence stain(s) in this case (if any), except where stated explicitly. The performance characteristics of the stain(s) cited in this report were developed and its performance characteristic determined by the Dermatopathology Laboratory at [facility], directed by Dr. Jaxon Coto. These tests need not be, and therefore are not, approved by the [place] Food and Drug Administration. The tests are used for clinical purposes. Billing Codes Specimen Charges Stain Charges 49735 1 51647 1 1 6:09 PM BOILERMAKER WELDER DERMATOPATHOLOGY LABORATORY Embedded Images 1 6:09 PM BOILERMAKER WELDER DERMATOPATHOLOGY LABORATORY Pathology/Cytolo gy TISSUE SPECIMEN FROM SKIN / Unknown 01/24/2021 3:33 AM BOILERMAKER WELDER 01/25/2021 11:46 AM BOILERMAKER WELDER Michael Montiel MD LAB - PATHOLOGY/CYTOLOGY ORDERA BLES Final Result DERMATOPATHOLOGY LABORATORY [facility] - Department of Dermatology [address], [address] [phone] documented in this encounter Visit Diagnoses Not on filedocumented in this encounter Care Teams Multimedia Engineer Relationship Specialty Start Date End Date Rufino Vela MD NEED INFORMATION UPDATED PCP - General 01/25/21 1 Lashell Reyes MD [address] [facility] [address] [place] [address] PCP - Attributed-[employer] 02/15/21 3 Lashell Reyes MD [address] [facility] [address] [place] [address] PCP - General Family Medicine 10/04/21 02/26/22 Rufino Vela MD NEED INFORMATION UPDATED PCP - General 02/27/22 documented as of this encounter
[2025-05-20] MEDS: ASPIRIN 81 MG CHEWABLE TABLET 324 MG PO (15:48)
[2025-05-20 15:51] LABS: Hematocrit 44.4 % (42.0-52.0); Hemoglobin 14.7 g/dL (14.0-18.0); Immature Granulocyte Percent A 0.2 % (0-0.5); Lymphocytes Absolute Auto 3.04 K/mm3 (0.9-3.2); Mean Corpuscular HGB Conc 33.1 g/dl (32-36); Mean Corpuscular Hemoglobin 28.6 pg (26-34); Mean Corpuscular Volume 86.4 fl (80-100); Nucleated Red Blood Cells Absolute Auto 0.000 K/mm3 (0.0-0.012); Nucleated Red Blood Cells Perc 0.0 % (0.0-0.2); Platelet Count Result 256 k/mm3 (150-375); Red Blood Count 5.14 M/mm3 (4.6-6.20); White Blood Count 8.7 K/mm3 (4.5-10.0)
[2025-05-20 16:02] LABS: Alanine Aminotransferase 25 U/L (6-50); Albumin Level 4.9 g/dL (3.5-5.1); Alkaline Phosphatase 53 U/L (38-126); Anion Gap 11 mmol/L (4-12); Aspartate Amino Transferase 32 U/L (17-59); Bilirubin,Total 1.0 mg/dL (0.2-1.3); Blood Urea Nitrogen 10 mg/dL (9-20); Calcium 9.6 mg/dL (8.4-10.2); Carbon Dioxide 25 mmol/L (22-30); Chloride 105 mmol/L (98-107); Estimated CRCL calculation 95 ml/min; Estimated Glomerular Filt Rate > 60; Glucose 101 mg/dL (65-110); Lipase 155 U/L (23-300); Potassium 3.5 mmol/L (3.4-5.0); Sodium 141 mmol/L (137-145); Total Protein 8.6 g/dL (6.3-8.2)
[2025-05-20 16:08] LABS: INR 1.0; Prothrombin Time 13.7 Seconds (11.1-14.7)
[2025-05-20 16:09] LABS: Partial Thromboplastin Time 25.8 Seconds (22.3-36.8)
[2025-05-20 16:13] LABS: Troponin I < 0.012 ng/mL (0.000-0.034)
--- NOTE | 2025-05-20 16:28 | ED_ITS ---
HPI - Chest Pain General Chief Complaint: Chest Pain Stated Complaint: cp Time Seen by Provider: 05/20/25 15:42 Source: patient Mode of arrival: ambulatory Limitations: no limitations History of Present Illness HPI narrative: 49 YEARS OLD WHITE MALE CAME TO THE ED WITH LEFT UPPER CHEST SHARP STABBING PAIN STARTED 2-3 DAYS AGO, WORSE WITH CERTAIN MOVEMENT, BETTER REMAINING STILL. PATIENT DENIES ANY FEVER, CHILLS, NAUSEA VOMITING, SHORTNESS OF BREATH OR RADIATION OF PAIN. PATIENT DOES NOT TAKE MEDICINE AT HOME, DOES NOT SMOKE CIGARETTE, NO FAMILY HISTORY OF CORONARY ARTERY DISEASE. PATIENT BIKING TWICE A WEEK AT LEAST 20-30 MILES EACH TIME WITHOUT ANY COMPLAIN. PATIENT WAS PLAYING HOCKEY WITH HIS 2 KIDS IN THE LAST FEW DAYS. Related Data Allergies Allergy/AdvReac Type Severity Reaction Status Date / Time No Known Allergies Allergy Verified 05/20/25 15:43 Review of Systems 2 Review of Systems: All systems reviewed & are unremarkable except as noted in HPI and below PMFSH Social History Social History Smoking status: Never smoker Alcohol intake: current Spiritual care concerns: No Exam 2 Narrative: GENERAL APPEARANCE: WELL-DEVELOPED, WELL-NOURISHED SKIN: NORMAL COLOR HEAD: NORMOCEPHALIC, NONTRAUMATIC EYES: CLEAR CONJUNCTIVA ENT: OROPHARYNX NORMAL, EARS NORMAL, NOSE NORMAL NECK: SUPPLE, NONTENDER CHEST AND RESPIRATORY: AIRWAY PATENT, NO RESPIRATORY DISTRESS, NO ACCESSORY MUSCLE USE, SLIGHT TENDERNESS LEFT UPPER CHEST, NO BRUISES, NO SWELLING, NO RASH HEART: REGULAR RATE/RHYTHM ABDOMEN: SOFT, NONTENDER, NO ORGANOMEGALY, QUIET BOWEL SOUNDS VASCULAR: NORMAL PERIPHERAL PULSES, NORMAL CAPILLARY REFILL. MUSCULOSKELETAL: NORMAL RANGE OF MOTION, NONTENDER BACK NEUROLOGIC: ALERT AND ORIENTED ?3, BOILERMAKER WELDER IS NORMAL TESTED, NO GROSS MOTOR DEFICIT Course Vital Signs Vital signs: Vital Signs Temperature 36.7 C 05/20/25 15:40 Pulse Rate 71 05/20/25 15:40 Respiratory Rate 05/20/25 15:40 Blood Pressure 176/95 H 05/20/25 15:40 Pulse Oximetry 99 05/20/25 15:40 Oxygen Delivery Room Air 05/20/25 15:40 Temperature 36.7 C 05/20/25 15:40 Pulse Rate 71 05/20/25 15:40 Respiratory Rate 20 05/20/25 15:40 Blood Pressure 176/95 H 05/20/25 15:40 Pulse Oximetry 99 05/20/25 15:40 Oxygen Delivery Room Air 05/20/25 15:40 MDM - Chest Pain MDM Narrative Medical decision making narrative: PATIENT CAME WITH LEFT UPPER CHEST SHARP STABBING PAIN FOR THE LAST 3 DAYS VITAL SIGNS SHOWING BLOOD PRESSURE 176/95 OTHERWISE WITHIN NORMAL LIMIT PHYSICAL EXAMINATION SHOWING SOME MILD TENDERNESS LEFT UPPER CHEST WITH PALPATION OTHERWISE INSIGNIFICANT CARDIAC SCORE IS 1 DIFFERENTIAL DIAGNOSIS CHEST WALL MUSCULAR PAIN, LESS LIKELY CORONARY ARTERY DISEASE, PNEUMONIA, PLEURISY BLOOD WORKUP TODAY INCLUDES CBC, CMP, TROPONIN SHOWED INSIGNIFICANT ABNORMALITIES CHEST X-RAY SHOWED NO ACUTE ABNORMALITY EKG SHOWED NORMAL SINUS RHYTHM AT 68 BEATS PER MINUTE WITH OCCASIONAL PVCS, NO OLD EKG AVAILABLE FOR COMPARISON Diagnosis chest wall pain, hypertension Discharge on losartan The pt was discharged to home.the pt,s condition upon discharge was fair,education was provided to the pt in reference to the final impression,discharge study results,treatment,prognosis and need for follow up . Differential Diagnosis Differential diagnosis: Likely other ( ABOVE) Medical Records Data Attestation: I reviewed the patient's medical records. Lab Data Attestation: I reviewed the patient's lab results. 05/20/25 15:45 05/20/25 15:45 Labs: Lab Results 05/20/25 Range/Units 15:45 WBC 8.7 (4.5-10.0) K/mm3 RBC 5.14 (4.6-6.20) M/mm3 Hgb 14.7 (14.0-18.0) g/dL Hct 44.4 (42.0-52.0) % MCV 86.4 (80-100) fl MCH 28.6 (26-34) pg MCHC 33.1 (32-36) g/dl RDW 13.2 (11.5-14.5) % Plt Count 256 (150-375) k/mm3 MPV 8.7 (7.4-10.4) fl Immature Gran % (Auto) 0.2 (0-0.5) % Neut % (Auto) 57.8 (45.5-73.1) % Lymph % (Auto) 35.1 (18.3-44.2) % Vernon % (Auto) 5.9 (2.6-8.5) % Eos % (Auto) 0.5 (0-4.4) % Baso % (Auto) 0.5 (0.2-1.2) % Lymph # (Auto) 3.04 (0.9-3.2) K/mm3 Vernon # (Auto) 0.5 (0.1-0.6) K/mm3 Eos # (Auto) 0.0 (0-0.3) K/mm3 Baso # (Auto) 0.0 (0.0-0.1) K/mm3 Abs Immat Gran (auto) 0.02 (0.00-0.031) K/mm3 Absolute Neuts (auto) 5.0 (1.3-6.7) K/mm3 Absolute Nucleated RBC 0.000 (0.0-0.012) K/mm3 Nucleated RBC % 0.0 (0.0-0.2) % PT 13.7 (11.1-14.7) Seconds INR 1.0 APTT 25.8 (22.3-36.8) Seconds Sodium 141 (137-145) mmol/L Potassium 3.5 (3.4-5.0) mmol/L Chloride 105 (98-107) mmol/L Carbon Dioxide 25 (22-30) mmol/L Anion Gap 11 (4-12) mmol/L BUN 10 (9-20) mg/dL Creatinine 0.96 (0.7-1.3) mg/dL Estim Creat Clear Calc 95 ml/min Estimated GFR > 60 (59 - ) Glucose 101 (65-110) mg/dL Calcium 9.6 (8.4-10.2) mg/dL Total Bilirubin 1.0 (0.2-1.3) mg/dL AST 32 (17-59) U/L ALT 25 (6-50) U/L Alkaline Phosphatase 53 (38-126) U/L Troponin I < 0.012 (0.000-0.034) ng/mL Total Protein 8.6 H (6.3-8.2) g/dL Albumin 4.9 (3.5-5.1) g/dL Lipase 155 (23-300) U/L Imaging Data Radiologist's impression: Impressions Chest X-Ray 05/20/25 15:57 IMPRESSION: No acute cardiopulmonary pathology. ECG Data EKG #1: Attestation: I personally reviewed and interpreted this ECG as follows: ECG completion date: 05/20/25 Interpretation: NORMAL SINUS RHYTHM AT 68 BEATS PER MINUTE, WITH OCCASIONAL PVCS, INCOMPLETE RIGHT BUNDLE-BRANCH BLOCK EKG #2: Attestation: I personally reviewed and interpreted this ECG as follows: ECG completion date: 05/20/25 Prior ECG tracings: available for review Interpretation: Sinus bradycardia 54 beats per minute, incomplete right bundle-branch block, borderline EKG, no PVCs compared to the early EKG today. Critical Care Time Critical Care Time Critical Care Time: No Discharge Plan Discharge Clinical Impression: Atypical chest pain, Hypertension Patient Disposition: Home Condition: Stable Instructions: Chest Pain (ED), Hypertension (ED) Additional Instructions: Return if symptoms are worsening , call your family physician for appointment, take Tylenol as as needed for aches and pain, continue home medications. Patient Language: Occitan Prescriptions: New losartan 50 mg tablet 50 mg PO DAILY Qty: 30 0RF Follow-up/Referrals: Bridget,Yanira Estrada MD [Primary Care Provider] - Quality HEART score for chest pain patients History: slightly suspicious ECG: normal Age: > 45 and < 65 years Risk factors: no risk factors known Troponin: < or = to 1x normal limit Heart score: 1
--- NOTE | 2025-05-20 16:38 | ECG_ITS ---
Test Date: 2025-05-20 17:03:16 Measurements Intervals [place] Rate: 54 P: 28 TN: 186 QRS: -15 QRSD: 102 T: 10 QT: 439 QTc: 417 Interpretive Statements SINUS BRADYCARDIA INCOMPLETE RIGHT BUNDLE BRANCH BLOCK [90+ ms QRS DURATION, TERMINAL R IN V1/V2, 40+ ms S IN I/aVL/V4/V5/V6] Compared to ECG 05/20/2025 15:38:48 heart rate decreased and PVC is no longer present Electronically Signed On 05-21-2025 13:57:20 CDT by Azael Acosta M.D.
--- OUTSIDE RECORDS SUMMARY | 2025-05-20 16:51 | XMS_ITS | Encounter Summary ---
Author Organization [facility] Address [address] [place] [address] Care Team Providers Care Kraft Mill Operator Name Role Phone Lashell Reyes MD Unavailable [phone] Rufino Vela MD Primary Care Provider Unav ailable Encounter Details Date Type Department Care Team (Late st Contact Info) Description 03/18/2022 Lab Requisition [facility] [address] [facility], [place] [id number] Michael Montiel MD [address] [place] [address] Social History Tobacco Use Types Packs/Day Years Used Date Smoking Tobacco: Never Smokeless Tobacco: Never Comments:BARS Alcohol Use Standard Drinks/Week Comments Yes 0 (1 standard drink = 0.6 oz pur e alcohol) 6-8 A WEEK Sex and Gender Information Value Date Recorded Sex Assigned at Not on file 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 Received: 03/18/2022 11:34 AM Pathologist: [...] back.The specimen consists of an ellipse measuring [id number] and is oriented with the suture/notch at [...] characteristic determined by the Dermatopathology Laboratory at [facility], directed by Dr. Jaxon Coto. These tests need not be, and therefore are not, approved by the [place] Food and Drug Administration. The tests are used for clinical purposes. Billing Codes Specimen Charges Stain Charges 25906 1 2 12:20 PM CDT DERMATOPATHOLOGY LABORATORY Embedded Images 2 12:20 PM CDT DERMATOPATHOLOGY LABORATORY Pathology/Cytolog y TISSUE SPECIMEN FROM SKIN / Unknown 03/15/2022 03/18/2022 11:34 AM CDT Michael Montiel MD LAB - PATHOLOGY/CYTOLOGY ORDERA BLES Final Result DERMATOPATHOLOGY LABORATORY [facility] Department of Dermatology [facility] Medicine [address] [place] [address], [address] [phone] documented in this encounter Visit Diagnoses Not on filedocumented in this encounter Care Teams Kraft Mill Operator Relationship Specialty Start Date End Date Lashell Reyes MD [address] [address] PCP - Attributed-[employer] 02/15/21 3 Rufino Vela MD NEED INFORMATION UPDATED PCP - General 02/27/22 documented as of this encounter
--- OUTSIDE RECORDS SUMMARY | 2025-05-20 16:51 | XMS_ITS | Clinical Summary ---
Author Organization [facility] Address [facility] [place] [address] Care Team Providers Care Offset Assistant Press Operator Name Role Phone Yanira Gill MD Primary Care Provider + Allergies Active Allergy Reactions Criticality Noted Date Comments Clarithromycin Diarrhea,Nausea Only 01/02/2009 Medications No known medications Active Problems Problem Noted Date Diagnosed Date Anxiety 01/12/2014 Overview (10/07/2024): Improved over the years. Mostly occurs at the dentist office. Allergic rhinitis 01/02/2009 Encounters Date Type Department Care Team Description 05/08/2025 Scan TR [employer] INFO SRVCS Scanned, [facility] 03/22/2025 9:30 AM CDT Office Visit [facility] Family Medicine - [address] [place] [id number] Yanira Gill MD Testicular Pain (Patient is present today with L testicular pain and blood in semen. Patient stated it happened yesterday, first blood in his semen then pain. Patient states he has had testicular pain intermittently for a few weeks. 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 Not on file Not [...] Vaccine (2023-2 5 season) 2024 PHQ-2 (Physician [place]) 11/17/2024 10/07/2024 Annual Physical 10/07/2025 10/07/2024 DTaP, [...] DESCRIPTION URINE, UNSPECIFIED 03/22/2025 1:33 PM CDT [facility] SPECIAL REQUESTS NO SPECIAL REQUEST 03/22/2025 1:33 PM CDT [facility] CULTURE RESULT NO GROWTH (< OR = 1,000 CFU/ML) 03/24/2025 1:05 PM CDT [facility] URINE SPECIMEN / Unknown 03/22/2025 9:57 AM CDT 03/22/2025 5:30 PM CDT us Yanira Gill MD MICROBIOLOGY - GENERAL O RDERABLES Final Result [facility] [address] [place] [address], [id number] * URINALYSIS AUTO DIP (03/22/2025) COLOR (U) [...] [address] NAVI Wright [address] [place] [address], [place] [phone] from Last 3 Months Insurance [facility] Care Teams Offset Assistant Press Operator Relationship Specialty Start Date End Date Yanira Gill MD [address] [place] [id number] PCP - General FAMILY PRACTICE 09/21/24
--- OUTSIDE RECORDS SUMMARY | 2025-05-20 16:51 | XMS_ITS | Clinical Summary ---
Author Organization [facility] Address [address] [place] [address] Care Team Providers Care Unit Clerk Name Role Phone Rufino Vela MD Primary Care Provider Unav ailable Source Comments [facility],non-owned Affiliates and Associated Physician Practices is amultiple site organization consisting of ambulatory clinics and hospital sitesin [place], [place], [place] and [place]. This disclosure is being madepursuant to the Care Everywhere program and may not contain all information available regarding this patient. 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 on file Not on file Last Filed Vital Signs Vital Sign Reading Time Taken Comments Blood Pressure 136/86 12/28/2020 10:50 AM SCHOOL AGE PROGRAM ASSOCIATE Pulse 82 12/28/2020 10:50 AM SCHOOL AGE PROGRAM ASSOCIATE Temperature 36 C (96.8 F) 12/28/2020 10:50 AM SCHOOL AGE PROGRAM ASSOCIATE Respiratory Rate 20 02/16/2019 8:56 AM CDT Oxygen Saturation 98% 12/28/2020 10:50 AM SCHOOL AGE PROGRAM ASSOCIATE Inhaled Oxygen Concentration - - Weight 102.1 kg (225 lb) 12/28/2020 10:50 AM SCHOOL AGE PROGRAM ASSOCIATE Height 185.4 cm (6' 1) 12/28/2020 10:50 AM SCHOOL AGE PROGRAM ASSOCIATE Body Mass Index 29.69 12/28/2020 10:50 AM SCHOOL AGE PROGRAM ASSOCIATE Plan of Treatment Health Maintenance Due Date [...] Exercise No Lashell Reyes MD Note: The [employer] recommends all adults [...] COMPREHENSIVE METABOLIC PANEL Routine 12/28/2020 12:03 PM SCHOOL AGE PROGRAM ASSOCIATE Annual physical exam Screening for diabetes mellitus LIPID PROFILE REFLEX LDL DIRECT Routine 12/28/2020 12:03 PM SCHOOL AGE PROGRAM ASSOCIATE Annual physical exam Screening, lipid HEPATITIS C AB W RFLX VERIFICATION Routine 12/28/2020 12:03 PM SCHOOL AGE PROGRAM ASSOCIATE Annual physical exam Encounter for hepatitis C screening test for low risk patient from Last 3 Months or Most Recently Relevant to Health Maintenance Results * (ABNORMAL) LIPID PROFILE REFLEX LDL DIRECT (12/28/2020 12:03 PM SCHOOL AGE PROGRAM ASSOCIATE) Cholesterol 242(H) <200 mg/dL [facility] INSURANCE BILL [...] BLOOD SPECIMEN / Unknown 12/28/2020 12:03 PM SCHOOL AGE PROGRAM ASSOCIATE 12/28/2020 Narrative Resulting Agency Comment Lab Testing performed at: [facility] [address] [place] [id number] [place] Lashell Reyes MD LAB - CHEMISTRY ORDERABLES Fin al Result [facility] INSURANCE BILL [address] [place] [address] * HEPATITIS C AB W RFLX VERIFICATION (12/28/2020 12:03 PM SCHOOL AGE PROGRAM ASSOCIATE) [facility] Hepatitis C Antibody <0.1 0.0 - 0.9 s/co ratio [facility] INSURANCE BILL Comment:FASTING Blood BLOOD SPECIMEN / Unknown 12/28/2020 12:03 PM SCHOOL AGE PROGRAM ASSOCIATE 12/28/2020 Narrative Resulting Agency Comment [facility]: [facility] [address] [facility] [phone] Lashell Reyes MD LAB - CHEMISTRY ORDERABLES Fin al Result [facility] INSURANCE BILL [address] [place] [address] * COMPREHENSIVE METABOLIC PANEL (12/28/2020 12:03 PM SCHOOL AGE PROGRAM ASSOCIATE) [facility] Glucose 88 70 - 105 mg/dL [facility] [...] BLOOD SPECIMEN / Unknown 12/28/2020 12:03 PM SCHOOL AGE PROGRAM ASSOCIATE 12/28/2020 Narrative Resulting Agency Comment Lab Testing performed at: [facility] [address] [place] [phone] Lashell Reyes MD LAB - CHEMISTRY ORDERABLES Fin al Result [facility] INSURANCE BILL [address] [place] [address] from Last 3 Months or Most Recently Relevant to Health Maintenance Insurance [facility] Address: [facility] [id number] [place] [address] [employer] Care Teams Unit Clerk Relationship Specialty Start Date End Date Rufino Vela MD NEED INFORMATION UPDATED PCP - General 02/27/22
--- OUTSIDE RECORDS SUMMARY | 2025-05-20 16:51 | XMS_ITS | Encounter Summary ---
Author Organization [employer] Address 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
--- OUTSIDE RECORDS SUMMARY | 2025-05-20 16:51 | XMS_ITS | Encounter Summary ---
Author Organization [facility] Address 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 Gender Identity Not on file Sexual Orientation Not on file documented as of this encounter Plan of Treatment Not on file documented as of this encounter Procedures Procedure Name Priority Date/Time Associated Diagnosis Comments PATHOLOGY Routine 03/18/2008 5:00 PM CDT documented in this encounter Results * PATHOLOGY (03/18/2008 5:00 PM CDT) FINAL REPORT [facility] [address] [place], [place] [address] Patient: MARCELINA YANCEY : 1975 Procedure Date: 03/18/2008 Accession Date: 03/19/2008 Case No: [id number] Ordering Dr: KUSUM MONTEMAYOR Case types AW, BW, FW, NW and SH are performed by [facility], [place], [place] SURGICAL PATHOLOGY & NON-GYNECOLOGIC CYTOPATHOLOGY REPORT [...] 09:41 am Microscopic: Received are slides labeled [id number], Marcelina Yancey. Sections of scrotum identify nests [...] developed and its performance characteristic determined by [facility], Department of Laboratory Medicine. It has not [...] on filedocumented in this encounter Care Teams Glove Sewer Relationship Specialty Start Date End Date Rufino Vela MD PCP - General 11/02/03 documented as of this encounter
--- OUTSIDE RECORDS SUMMARY | 2025-05-20 16:51 | XMS_ITS | Encounter Summary ---
Author Organization [facility] Address [address] [place] [address] Care Team Providers Care Driver/Guide Name Role Phone Yanira Gill MD Primary Care Provider + Encounter Details Date Type Department Care Team (Late st Contact Info) Description 03/22/2025 Results Follow-Up [facility] Family Medicine - [place] [address] [facility] [address] [place] [phone] Yanira Gill MD [address] [place] [address] URINALYSIS AUTO DIP Social History Tobacco Use [...] AM CDT Legal Sex Male 3:37 PM HIGH RIGGER Gender Identity Male 03/22/2025 9:18 AM CDT Sexual Orientation Not on file 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
--- OUTSIDE RECORDS SUMMARY | 2025-05-20 16:51 | XMS_ITS | Clinical Summary ---
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
--- OUTSIDE RECORDS SUMMARY | 2025-05-20 16:51 | XMS_ITS | Clinical Summary ---
Author Organization 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
--- OUTSIDE RECORDS SUMMARY | 2025-05-20 16:51 | XMS_ITS | Encounter Summary ---
Author Organization [facility] Address 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
--- OUTSIDE RECORDS SUMMARY | 2025-05-20 16:51 | XMS_ITS | Encounter Summary ---
Author Organization [facility] Health Address [address] 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 Gender Identity Not on file Sexual Orientation Not on file documented as of this encounter Plan of Treatment Not on file documented as of this encounter Visit Diagnoses Not on filedocumented in this encounter Care Teams Senior Market Intelligence Consultant Relationship Specialty Start Date End Date Rufino Vela MD PCP - General 01/02/09 02/15/19 Lashell Reyes MD PCP - General Family Medicine 02/16/19 03/31/19 Rufino Vela MD PCP - General 04/01/19 04/28/19 Lashell Reyes MD PCP - General Family Medicine 04/29/19 01/24/21 Rufino Vela MD NEED INFORMATION UPDATED PCP - General 01/25/21 1 Lashell Reyes MD [address] [address] PCP - Attributed-[employer] 02/15/21 3 Lashell Reyes MD PCP - General Family Medicine 10/04/21 02/26/22 Rufino Vela MD NEED INFORMATION UPDATED PCP - General 02/27/22 documented as of this encounter
--- OUTSIDE RECORDS SUMMARY | 2025-05-20 16:51 | XMS_ITS | Encounter Summary ---
Author Organization [facility] Address [address] [place] [address] Care Team Providers Care Physical Trainer Name Role Phone Rufino Vela MD Primary Care Provider Unav ailable Lashell Reyes MD Primary Care Provider [phone] Rufino Vela MD Primary Care Provider Unav ailable Lashell Reyes MD Primary Care Provider [phone] Rufino Vela MD Primary Care Provider Unav ailable Lashell Reyes MD Unavailable [phone] Lashell Reyes MD Primary Care Provider [phone] Rufino Vela MD Primary Care Provider Unav ailable Encounter Details Date Type Department Care Team (Late st Contact Info) Description 12/08/2018 Lab Requisition [facility] Care DermPath Lab [address] [facility] [place] [address] Michael Montiel MD [address] [place] [address] Social History Tobacco Use Types Packs/Day Years Used Date Smoking Tobacco: Never Smokeless Tobacco: Never Comments:BARS Alcohol Use Standard Drinks/Week Comments Yes 0 (1 standard drink = 0.6 oz pur e alcohol) 6-8 A WEEK Sex and Gender Information Value Date Recorded Sex Assigned at Not on file Legal Sex Male 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 Gender Identity Not on file Sexual Orientation Not on file 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 on file Not on file documented as of this encounter Plan of Treatment Not on file documented as of this encounter Procedures Procedure Name Priority Date/Time Associated Diagnosis Comments DERMATOPATHOLOGY Routine 12/07/2018 12:0 0 AM WEB DATABASE DEVELOPER documented in this encounter Results * DERMATOPATHOLOGY (12/07/2018 12:00 AM WEB DATABASE DEVELOPER) Case Report Dermatopathology Report Case: [id number] Authorizing Provider: Michael Montiel MD Collected: 12/07/2018 12:00 AM Pathologist: Tory Quintana MD Received: 12/08/2018 12:58 PM Specimen: Skin, left buttocks 11:43 AM [facility]ER[facility] Final Diagnosis Specimen A. SKIN, left buttocks: COMPOUND MELANOCYTIC NEVUS (D22.5) 11:43 AM [facility] DERMATOPATH[facility]Y [facility]ORAT[facility] at 1143 WEB DATABASE DEVELOPER Clinical History Nevus R/O atypia. 11:43 AM [facility] Gross Description Specimen A: Received is one formalin filled container labeled with the patient's name and designated left buttocks. The specimen consists of a shave biopsy measuring 5l9g3oj. Jar 0. 11:43 AM [facility]ERMAT[facility] Microscopic Description Specimen A. SKIN, left buttocks: There are nests of melanocytes at the dermal-epidermal junction and within the dermis. 11:43 AM [facility]ER[facility] Disclaimer An external and internal positive and negative controls are appropriate for the histochemical, immunohistochemical and immunofluorescence stain(s) in this case (if any), except where stated explicitly. The performance characteristics of the stain(s) cited in this report were developed and its performance characteristic determined by the Dermatopathology Laboratory at [facility], directed by Dr. Jaxon Coto. These tests need not be, and therefore are not, approved by the [place] Food and Drug Administration. The tests are used for clinical purposes. Billing Codes Specimen Charges Stain Charges 50770 1 01/23/201 9 11:43 AM WEB DATABASE DEVELOPER DERMATOPATHOLOGY LABORATORY Embedded Images 9 11:43 AM WEB DATABASE DEVELOPER DERMATOPATHOLOGY LABORATORY Pathology/Cytolog y TISSUE SPECIMEN FROM SKIN / Unknown 12/07/2018 12/08/2018 12:58 PM WEB DATABASE DEVELOPER Michael Montiel MD LAB - PATHOLOGY/CYTOLOGY ORDERA BLES Final Result DERMATOPATHOLOGY LABORATORY [facility] - Department of Dermatology [address] [place] [address], 5th Floor Lab [address] [phone] documented in this encounter Visit Diagnoses Not on filedocumented in this encounter Care Teams Physical Trainer Relationship Specialty Start Date End Date Rufino Vela MD PCP - General 01/02/09 02/15/19 Lashell Reyes MD PCP - General Family Medicine 02/16/19 03/31/19 Rufino Vela MD PCP - General 04/01/19 04/28/19 Lashell Reyes MD PCP - General Family Medicine 04/29/19 01/24/21 Rufino Vela MD NEED INFORMATION UPDATED PCP - General 01/25/21 1 Lashell Reyes MD [address] [address] PCP - Attributed-[employer] 02/15/21 3 Lashell Reyes MD PCP - General Family Medicine 10/04/21 02/26/22 Rufino Vela MD NEED INFORMATION UPDATED PCP - General 02/27/22 documented as of this encounter
--- OUTSIDE RECORDS SUMMARY | 2025-05-20 16:51 | XMS_ITS | Encounter Summary ---
Author Organization [facility] Address [address] [facility] [place] [address] Care Team Providers Care Pump Tender Name Role Phone Rufino Vela MD Primary Care Provider Unav ailable Lashell Reyes MD Primary Care Provider [phone] Rufino Vela MD Primary Care Provider Unav ailable Lashell Reyes MD Primary Care Provider [phone] Rufino Vela MD Primary Care Provider Unav ailable Lashell Reyes MD Unavailable [phone] Lashell Reyes MD Primary Care Provider [phone] Rufino Vela MD Primary Care Provider Unav ailable Encounter Details Date Type Department Care Team (Late st Contact Info) Description 03/17/2015 Therapy Visit [facility] Rufino Vela MD NEED INFORMATION UPDATED Social History Tobacco Use Types Packs/Day Years Used Date Smoking Tobacco: Never Smokeless Tobacco: Never Comments:BARS Alcohol Use Standard Drinks/Week Comments Yes 0 (1 standard drink = 0.6 oz pur e alcohol) 6-8 A WEEK Sex and Gender Information Value Date Recorded Sex Assigned at Not on file Legal 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 Male 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 Gender Identity Not on file Sexual Orientation Not on file 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 on file Not on file documented as of this encounter Plan of Treatment Not on file documented as of this encounter Visit Diagnoses Not on filedocumented in this encounter Care Teams Pump Tender Relationship Specialty Start Date End Date Rufino Vela MD PCP - General 01/02/09 02/15/19 Lashell Reyes MD PCP - General Family Medicine 02/16/19 03/31/19 Rufino Vela MD PCP - General 04/01/19 04/28/19 Lashell Reyes MD PCP - General Family Medicine 04/29/19 01/24/21 Rufino eVla MD NEED INFORMATION UPDATED PCP - General 01/25/21 1 Lashell Reyes MD [address] [place] [phone] PCP - Attributed-[employer] 02/15/21 3 Lashell Reyes MD PCP - General Family Medicine 10/04/21 02/26/22 Rufino Vela MD NEED INFORMATION UPDATED PCP - General 02/27/22 documented as of this encounter
--- OUTSIDE RECORDS SUMMARY | 2025-05-20 16:51 | XMS_ITS | Encounter Summary ---
Author Organization [facility] Address [address] [place] [address] Care Team Providers Care Cement Conveyor Operator Name Role Phone Rufino Vela MD Primary Care Provider [phone] Encounter Details Date Type Department Care Team (Late st Contact Info) Description 08/21/2001 Outpatient Historical [facility] Internal Medicine Medical [place] [address] [facility] [address] [address] Darren Gee MD [address] [place] [address] Social History Tobacco Use Types Packs/Day Years Used Date Smoking Tobacco: Never Assessed Sex and Gender Information Value Date Recorded Sex Assigned at Not on file 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
--- OUTSIDE RECORDS SUMMARY | 2025-05-20 16:51 | XMS_ITS | Encounter Summary ---
Author Organization [facility] Address [address] [facility] [place] [address] Care Team Providers Care Housekeeper/Custodian/Laundry Worker Name Role Phone Lashell Reyes MD Unavailable [phone] Rufino Vela MD Primary Care Provider Unav ailable Encounter Details Date Type Department Care Team (Late st Contact Info) Description 02/27/2022 Lab Requisition [facility] [address] 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 DermPath Lab Received: 02/27/2022 02:18 PM Pathologist: [...] specimen consists of a shave biopsy measuring [id number]. Jar 0. 2 5:25 PM CDT DERMATOPATHOLOGY [...] purposes. Billing Codes Specimen Charges Stain Charges 66115 1 74621 1 2 5:25 PM CDT DERMATOPATHOLOGY LABORATORY Embedded Images 2 5:25 PM CDT DERMATOPATHOLOGY LABORATORY Pathology/Cytolog y TISSUE SPECIMEN FROM SKIN / Unknown 02/27/2022 02/27/2022 2:18 PM CDT Michael Montiel MD LAB - PATHOLOGY/CYTOLOGY ORDERA BLES Final Result DERMATOPATHOLOGY LABORATORY [facility] Department of Dermatology [facility] Medicine [address] [place] [address], [address] [phone] documented in this encounter Visit Diagnoses Not on filedocumented in this encounter Care Teams Housekeeper/Custodian/Laundry Worker Relationship Specialty Start Date End Date Lashell Reyes MD [facility] [facility] [address] [place] [address] PCP - Attributed-[employer] 02/15/21 3 Rufino Vela MD NEED INFORMATION UPDATED PCP - General 02/27/22 documented as of this encounter
--- OUTSIDE RECORDS SUMMARY | 2025-05-20 16:51 | XMS_ITS | Encounter Summary ---
Author Organization [facility] Address [address] [place] [address] Care Team Providers Care Manager Trading Name Role Phone Rufino Vela MD Primary Care Provider [phone] Encounter Details Date Type Department Care Team (Late st Contact Info) Description 03/10/2001 Outpatient Historical [facility] Internal Medicine Medical [place] [address] [facility] [address] [address] Darren Gee MD [address] [place] [address] Social History Tobacco Use Types Packs/Day Years Used Date Smoking Tobacco: Never Assessed Sex and Gender Information Value Date Recorded Sex Assigned at Not on file 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
--- OUTSIDE RECORDS SUMMARY | 2025-05-20 16:51 | XMS_ITS | Encounter Summary ---
Author Organization [facility] Address [address] [place] [address] Care Team Providers Care Atg Architect Name Role Phone Rufino Vela MD Primary Care Provider [phone] Encounter Details Date Type Department Care Team (Late st Contact Info) Description 12/23/2000 Outpatient Historical [facility] Internal Medicine Medical [place] [address] [facility] [address] [address] Darren Gee MD [address] [place] [address] Social History Tobacco Use Types Packs/Day Years Used Date Smoking Tobacco: Never Assessed Sex and Gender Information Value Date Recorded Sex Assigned at Not on file 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
--- OUTSIDE RECORDS SUMMARY | 2025-05-20 16:51 | XMS_ITS | Referral Summary ---
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
--- OUTSIDE RECORDS SUMMARY | 2025-05-20 16:51 | XMS_ITS | Encounter Summary ---
Author Organization [facility] Address [address] [facility] [place] [address] Care Team Providers Care Mix Crusher Operator Name Role Phone Rufino Vela MD Primary Care Provider Unav ailable Lashell Reyes MD Unavailable [phone] Lashell Reyes MD Primary Care Provider [phone] Rufino Vela MD Primary Care Provider Unav ailable Encounter Details Date Type Department Care Team (Late st Contact Info) Description 01/25/2021 Lab Requisition [facility] Care DermPath Lab [address] [place] [phone] Michael Montiel MD [address] [place] [address] Social History Tobacco Use Types Packs/Day Years Used Date Smoking Tobacco: Never Smokeless Tobacco: Never Comments:BARS Alcohol Use Standard Drinks/Week Comments Yes 0 (1 standard drink = 0.6 oz pur e alcohol) 6-8 A WEEK Sex and Gender Information Value Date Recorded Sex Assigned at Not on file Legal Sex Male 4:27 AM NURSE CHARGE RN Gender Identity Not on file Sexual Orientation [...] Exercise No Lashell Reyes MD Note: The [employer] recommends all adults [...] Diagnosis Comments DERMATOPATHOLOGY Routine 01/24/2021 3:33 AM NURSE CHARGE RN documented in this encounter Results * DERMATOPATHOLOGY (01/24/2021 3:33 AM NURSE CHARGE RN) Case Report Dermatopathology Report Case: [id number] Authorizing Provider: Michael Montiel MD Collected: 01/24/2021 03:33 AM Ordering Location: [facility] DermPath Lab Received: 01/25/2021 11:46 AM Pathologist: Nidia Harden MD Specimen: Skin, right groin 6:09 PM NURSE CHARGE RN DERMATOPATHOLOGY LABORATORY Final Diagnosis Specimen A. SKIN, right groin: LENTIGINOUS MELANOCYTIC NEVUS, COMPOUND TYPE, IRRITATED (COMPOUND MELANOCYTIC NEVUS WITH ARCHITECTURAL DISORDER) (D22.71) PRESENT AT MARGIN (see microscopic description) 6:09 PM NURSE CHARGE RN DERMATOPATHOLOGY LABORATORY at 1803 NURSE CHARGE RN Microscopic Description Specimen A. SKIN, right groin: [...] base of the specimen. 1 6:09 PM [facility] DERMATOPATHOLOGY LABORATORY Disclaimer An external and internal positive and negative controls are appropriate for the histochemical, immunohistochemical and immunofluorescence stain(s) in this case (if any), except where stated explicitly. The performance characteristics of the stain(s) cited in this report were developed and its performance characteristic determined by the Dermatopathology Laboratory at [facility], directed by Dr. Jaxon Coto. These tests need not be, and therefore are not, approved by the [place] Food and Drug Administration. The tests are used for clinical purposes. Billing Codes Specimen Charges Stain Charges 80912 1 53864 1 1 6:09 PM NURSE CHARGE RN DERMATOPATHOLOGY LABORATORY Embedded Images 1 6:09 PM NURSE CHARGE RN DERMATOPATHOLOGY LABORATORY Pathology/Cytolo gy TISSUE SPECIMEN FROM SKIN / Unknown 01/24/2021 3:33 AM NURSE CHARGE RN 01/25/2021 11:46 AM NURSE CHARGE RN Michael Montiel MD LAB - PATHOLOGY/CYTOLOGY ORDERA BLES Final Result DERMATOPATHOLOGY LABORATORY [facility] - Department of Dermatology [address], [address] [phone] documented in this encounter Visit Diagnoses Not on filedocumented in this encounter Care Teams Mix Crusher Operator Relationship Specialty Start Date End Date Rufino Vela MD NEED INFORMATION UPDATED PCP - General 01/25/21 1 Lashell Reyes MD [address] [facility] [address] [place] [address] PCP - Attributed-Cigna 02/15/21 3 Lashell Reyes MD [address] [facility] [address] [place] [address] PCP - General Family Medicine 10/04/21 02/26/22 Rufino Vela MD NEED INFORMATION UPDATED PCP - General 02/27/22 documented as of this encounter
--- OUTSIDE RECORDS SUMMARY | 2025-05-20 16:51 | XMS_ITS | Encounter Summary ---
Author Organization [facility] Address [address] [facility] [place] [address] Care Team Providers Care Resp Therapist Name Role Phone Rufino Vela MD Primary Care Provider Unav ailable Lashell Reyes MD Primary Care Provider [phone] Rufino Vela MD Primary Care Provider Unav ailable Lashell Reyes MD Unavailable [phone] Lashell Reyes MD Primary Care Provider [phone] Rufino Vela MD Primary Care Provider Unav ailable Encounter Details Date Type Department Care Team (Late st Contact Info) Description 04/01/2019 Lab Requisition [facility] Care DermPath Lab [address] [facility] [place] [address] Michael Montiel MD [address] [place] [address] Social History Tobacco Use Types Packs/Day Years Used Date Smoking Tobacco: Never Smokeless Tobacco: Never Comments:BARS Alcohol Use Standard Drinks/Week Comments Yes 0 (1 standard drink = 0.6 oz pur e alcohol) 6-8 A WEEK Sex and Gender Information Value Date Recorded Sex Assigned at Not on file 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 R/O other 9 4:07 PM CDT DERMATOPATHOLOGY LABORATORY Gross Description Specimen A: Received is one formalin filled container labeled with the patient's name and designated right gnosticism. The specimen consists of a shave biopsy measuring 5x4x1 mm. Jar 0. [facility] Dermatopathology Laboratory performed the technical component [...] characteristic determined by the Dermatopathology Laboratory at [facility], directed by Dr. Jaxon Coto. These [...] PATHOLOGY/CYTOLOGY ORDERA BLES Final Result DERMATOPATHOLOGY LABORATORY [facility] - Department of Dermatology [address] [place] [address], 5th [place] [address], [facility] [phone] documented in this encounter Visit Diagnoses Not on filedocumented in this encounter Care Teams Resp Therapist Relationship Specialty Start Date End Date Rufino Vela MD PCP - General 04/01/19 04/28/19 Lashell Reyes MD PCP - General Family Medicine 04/29/19 01/24/21 Rufino Vela MD NEED INFORMATION UPDATED PCP - General 01/25/21 1 Lashell Reyes MD [address] [place] [phone] PCP - Attributed-[employer]a 02/15/21 3 Lashell Reyes MD PCP - General Family Medicine 10/04/21 02/26/22 Rufino Vela MD NEED INFORMATION UPDATED PCP - General 02/27/22 documented as of this encounter
== END 2025-05-20 17:32 | disposition home or self-care (01) ==
LOC: ANHED 16:49
PROVIDERS: Emergency Medicine; Emergency Provider Emergency Medicine; PCP Student in an Organized Health Care Education/Training Program
DX: R07.89 Other chest pain (principal); I10 Essential (primary) hypertension
CPT/HCPCS: 36415; 71045; 80053; 83690; 84484; 85025; 85610; 85730; 93005; 99284; A9270